=== PATIENT | female | born 1940 | race Asian ===

== ENCOUNTER 2017-02-03 16:16 | Inpatient (IN) | payer OTHER, MEDICARE ==
[~2017-02-03] VITALS: Ht 149.9 cm; Wt 39.6 kg
[~2017-02-03 16:16] MED LIST: AMLO5TAB22 PO; RALO1TAB13 PO; TRAM-388 PO; ZOCO40TA PO
[2017-02-03 16:20] VITALS: BP 140/60; PULSE 104; RESP 16; TEMP 98.4; O2SAT 98
--- NOTE | 2017-02-03 17:27 | PD ---
HPI Chief Complaint: Dizziness Time Seen by Provider: 17:15 Travel History International Travel<30 days: No Contact w/Intl Traveler<30days: No Traveled to known affect area: No History of Present Illness HPI This is a 77-year-old female with history of vertigo on meclizine treatment for years, hypertension, osteoporosis. She presents with her sister for evaluation. For the past few weeks the patient has been complaining of worsening dyspnea with exertion, dizziness, lightheadedness, headaches. Symptoms have persisted which prompted evaluation. She reports that she has dyspnea even when walking across the room. She has no history of congestive heart failure or other cardiac illness. She denies chest pain, cough or congestion, nausea or vomiting, abdominal pain, dysuria, flank pain, fevers or chills. She has reported that she's had a decreased appetite and has been feeling generalized weakness. Her primary care physician is Dr. Johnston. She has no other complaints at this time. PFSH Past Medical History High Cholesterol: Yes Cerebrovascular Accident: No Diabetes: No Hypertension: Yes Musculoskeletal: Yes (OSTEOPORISIS) Myocardial Infarction: No Past Surgical History Abdominal Surgery: Yes (TUMOR REMOVED FROM STOMACH) Gynecologic Surgery: Yes (RIGHT BREAST CYST REMOVED) Social History Alcohol Use: No Tobacco Use: No Substance Use: No Allergies-Medications (Allergen,Severity, Reaction): Coded Allergies: penicillin G (Unverified Allergy, Intermediate, 12/12/16) Reported Meds & Prescriptions Reported Meds & Active Scripts Active Reported Metoprolol Tartrate 50 Mg Tab 50 Mg PO BID Raloxifene (Raloxifene HCl) 60 Mg Tab 60 Mg PO DAILY Amlodipine (Amlodipine Besylate) 5 Mg Tab 5 Mg PO DAILY Meclizine (Meclizine HCl) 12.5 Mg Tab 12.5 Mg PO TID PRN Review of Systems Except as stated in HPI: all other systems reviewed are Neg Physical Exam Narrative GENERAL: [Pleasant elderly female who is in no acute distress sitting upright in hospital bed. Her vital signs have been reviewed. SKIN: Warm and dry. HEAD: Atraumatic. Normocephalic. EYES: Pupils equal and round. No scleral icterus. No injection or drainage. ENT: No nasal bleeding or discharge. Mucous membranes pink and moist. NECK: Trachea midline. No JVD. CARDIOVASCULAR: Regular rate and rhythm. No murmur appreciated. RESPIRATORY: No accessory muscle use. Clear to auscultation. Breath sounds equal bilaterally. No crackles no wheezing no rhonchi GASTROINTESTINAL: Abdomen soft, non-tender, nondistended. Hepatic and splenic margins not palpable. MUSCULOSKELETAL: No obvious deformities. No clubbing. No cyanosis. No edema. NEUROLOGICAL: Awake and alert. No obvious cranial nerve deficits. Motor grossly within normal limits. Normal speech. PSYCHIATRIC: Appropriate mood and affect; insight and judgment normal. Data Data Last Documented VS Vital Signs Date Time Temp Pulse Resp B/P (MAP) Pulse Ox O2 Delivery O2 Flow Rate FiO2 02/03/17 18:55 96 18 112/78 (89) 96 Room Air 02/03/17 16:20 98.4 Orders Orders Complete Blood Count With Diff (02/03/17:24) Comprehensive Metabolic Panel (02/03/17:24) B-Type Natriuretic Peptide (02/03/17 17:24) Magnesium (Mg) (02/03/17 17:24) Ckmb (Isoenzyme) Profile (02/03/17:24) Troponin I (02/03/17:24) Iv Access Insert/Monitor (02/03/17 17:24) Electrocardiogram (02/03/17:24) Ecg Monitoring (02/03/17:24) Oximetry (02/03/17:24) Chest, Single Ap (02/03/17 17:24) Ct Brain W/O Iv Contrast(Rout) (02/03/17 17:24) Ondansetron Inj (Zofran Inj) (02/03/17 17:30) Orthostatic Vital Signs (02/03/17 17:24) Meclizine (Antivert) (02/03/17 17:30) Urinalysis - C+S If Indicated (02/03/17 17:27) Urine Culture (02/03/17 17:50) Type And Screen (02/03/17 18:31) Red Blood Cells (Rbc) (02/03/17 18:31) Blood Product Administration (02/03/17 18:31) Act Partial Throm Time (Ptt) (02/03/17 18:31) Prothrombin Time / Inr (Pt) (02/03/17 18:31) Platelet Pheresis (02/03/17 18:39) Ceftriaxone Inj (Rocephin Inj) (02/03/17 18:45) Labs Laboratory Tests Test 02/03/17 17:50 02/03/17 17:53 02/03/17 18:30 Urine Color YELLOW Urine Turbidity HAZY Urine pH 5.5 Urine Specific [place] 1.024 Urine Protein 30 mg/dL Urine Glucose (UA) NEG mg/dL Urine Ketones TRACE mg/dL Urine Occult Blood TRACE Urine Nitrite NEG Urine Bilirubin NEG Urine Urobilinogen 2.0 MG/DL Urine Leukocyte Esterase LARGE Urine RBC 2 /hpf Urine WBC 40 /hpf Urine Squamous Epithelial Cells 2 /hpf Urine Hyaline Casts 3 /lpf Urine Mucus MOD /lpf Microscopic Urinalysis Comment CULTURE INDICATED White Blood Count 4.1 TH/MM3 Red Blood Count 1.29 MIL/MM3 Hemoglobin 4.4 GM/DL Hematocrit 12.7 % Mean Corpuscular Volume 98.4 FL Mean Corpuscular Hemoglobin 34.1 PG Mean Corpuscular Hemoglobin Concent 34.7 % Red Cell Distribution Width 12.9 % Platelet Count 18 TH/MM3 Mean Platelet Volume 9.3 FL Neutrophils (%) (Auto) 71.1 % Lymphocytes (%) (Auto) 14.5 % Monocytes (%) (Auto) 8.4 % Eosinophils (%) (Auto) 5.3 % Basophils (%) (Auto) 0.7 % Neutrophils # (Auto) 2.9 TH/MM3 Lymphocytes # (Auto) 0.6 TH/MM3 Monocytes # (Auto) 0.3 TH/MM3 Eosinophils # (Auto) 0.2 TH/MM3 Basophils # (Auto) 0.0 TH/MM3 CBC Comment AUTO DIFF Differential Comment AUTO DIFF CONFIRMED Platelet Estimate LOW Platelet Morphology Comment NORMAL Ovalocytes 1+ Blood Urea Nitrogen 36 MG/DL Creatinine 1.39 MG/DL Random Glucose 128 MG/DL Total Protein 7.5 GM/DL Albumin 4.0 GM/DL Calcium Level 8.5 MG/DL Magnesium Level 2.3 MG/DL Alkaline Phosphatase 47 U/L Aspartate Amino Transf (AST/SGOT) 12 U/L Alanine Aminotransferase (ALT/SGPT) 14 U/L Total Bilirubin 0.5 MG/DL Sodium Level 141 MEQ/L Potassium Level 4.1 MEQ/L Chloride Level 110 MEQ/L Carbon Dioxide Level 20.9 MEQ/L Anion Gap 10 MEQ/L Estimat Glomerular Filtration Rate 37 ML/MIN Total Creatine Kinase 60 U/L Troponin I LESS THAN 0.02 NG/ML Prothrombin Time 12.6 SEC Prothromb Time International Ratio 1.1 RATIO Activated Partial Thromboplast Time 22.[address] [facility] Medical Decision Making Medical Screen Exam Complete: Yes Emergency Medical Condition: Yes Medical Record Reviewed: Yes Differential Diagnosis Vertigo, electrolyte abnormality, dehydration, orthostatic hypotension, new onset CHF, arrhythmia, pneumonia, pneumothorax Narrative Course The patient will be placed on ECG monitoring and pulse oximetry. Twelve-lead EKG will be obtained. Plan is for basic lab work, chest x-ray. She'll be given meclizine, Zofran. Lab work is been reviewed. Hemoglobin is 4.4, platelet count is 18, she denies any hematemesis, hematochezia, melena. Hemoccult performed is negative. She does report a weight loss of uncertain amount over the past few months, at least several pounds. Urinalysis reveals 40 WBC count, culture pending, Rocephin has been initiated. The patient has been given 2 units of packed red blood cells and 2 units of platelets. She will be admitted for further evaluation and treatment. Procedures EKG Prior to Arrival: Yes Diagnosis Primary Impression: Anemia Qualified Codes: D64.9 - Anemia, unspecified Additional Impressions: Thrombocytopenia Pyuria Admitting Information Admitting Physician Requests: Admit Brady Khan Feb 03, 2017 17:27
[2017-02-03] MEDS ORDERED: MECLIZINE HCL 25 MG TAB PO ONE (17:30)
[2017-02-03] MEDS ORDERED: ONDANSETRON HCL 4 MG/2 ML VIAL IVP ONE (17:30)
[2017-02-03 17:36] VITALS: O2SAT 97
[2017-02-03] MEDS ORDERED: RALO1TAB PO (17:40)
[2017-02-03] MEDS ORDERED: METO50TA PO (17:40)
[2017-02-03] MEDS ORDERED: MECL12.574 PO (17:40)
[2017-02-03] MEDS ORDERED: AMLO5TAB2 PO (17:40)
--- NOTE | 2017-02-03 17:43 | RADRPT ---
EXAM DATE/TIME: 02/03/2017 17:28 [facility] COMPARISON: No previous studies available for comparison. INDICATIONS : Short of breath. MEDICAL HISTORY : None. SURGICAL HISTORY : None. ENCOUNTER: Initial ACUITY: 1 day PAIN SCORE: 6/10 LOCATION: Bilateral chest FINDINGS: Cardiomegaly. Aortic calcification. Clear lungs. Degenerative changes of the spine. Degenerative henry ges of both shoulders. CONCLUSION: No acute disease. Crispin Williamson MD on February 03, 2017 at 17:41 Board Certified Radiologist. This report was verified electronically.
[2017-02-03 17:50] VITALS: BP_SYST 123; BP_SYST 126; BP_SYST 127; BP_DIAS 58; BP_DIAS 59; BP_DIAS 60; RESP 18
[2017-02-03 18:21] LABS: BLOOD, URINE TRACE (NEG); COMMENT (UR) CULTURE INDICATED; CULTURE IF INDICATED CULTURE INDICATED; GLUCOSE,URINE NEG (NEG); HYALINE CAST, URINE 3 /lpf (RARE); KETONE, URINE TRACE mg/dL (NEG); MUCUS URINE MOD /lpf (OCC); NITRITE,URINE NEG (NEG); PH, URINE 5.5 (5.0-8.5); SQUAMOUS EPITHELIAL CELL URINE 2 /hpf (0-5); URINE COLOR YELLOW (YELLW/STRAW)
[2017-02-03 18:24] LABS: AUTOMATED NEUTROPHIL # 2.9 TH/MM3 (1.8-7.7); BASOPHIL % 0.7 % (0.0-2.0); EOSINOPHIL # 0.2 TH/MM3 (0-0.4); EOSINOPHIL % 5.3 % (0.0-4.0); LYMPH % 14.5 % (9.0-44.0); LYMPHOCYTE # 0.6 TH/MM3 (1.0-4.8); MEAN CELL VOLUME 98.4 FL (80.0-100.0); MEAN CORPUSCULAR HEMOGLOBIN 34.1 PG (27.0-34.0); MEAN CORPUSCULAR HGB CONC 34.7 % (32.0-36.0); MONO % 8.4 % (0.0-8.0); NEUT % 71.1 % (16.0-70.0); RED BLOOD COUNT 1.29 MIL/MM3 (4.00-5.30); RED CELL DISTRIBUTION WIDTH 12.9 % (11.6-17.2); WHITE BLOOD COUNT 4.1 TH/MM3 (4.0-11.0)
--- NOTE | 2017-02-03 18:29 | RADRPT ---
EXAM DATE/TIME: 02/03/2017 18:11 [facility] COMPARISON: CT BRAIN W/O CONTRAST, April 23, 2009, 16:42. INDICATIONS : Dizziness for two weeks. RADIATION DOSE: 25.36 CTDIvol (mGy) MEDICAL HISTORY : Hypertension. SURGICAL HISTORY : Hysterectomy. ENCOUNTER: Initial ACUITY: 1 day PAIN SCALE: 0/10 LOCATION: Bilateral head TECHNIQUE: Multiple contiguous axial images were obtained of the head. Using automated exposure control and adj ustment of the mA and/or kV according to patient size, radiation dose was kept as low as reasonably a chievable to obtain optimal diagnostic quality images. DICOM format image data is available electro nically for review and comparison. FINDINGS: There is mild diffuse volume loss again seen. No hemorrhage, infarct, or mass. Osseous structures are intact. CONCLUSION: No acute disease. Crispin Williamson MD on February 03, 2017 at 18:28 Board Certified Radiologist. This report was verified electronically.
[2017-02-03 18:32] LABS: HEMO FLAGS AUTO DIFF
[2017-02-03 18:33] LABS: HEMATOCRIT 12.7 % (35.0-46.0)
[2017-02-03 18:34] LABS: PLATELET COUNT 18 TH/MM3 (150-450)
[2017-02-03] MEDS ORDERED: cefTRIAXone INJ 1,000 MG in SODIUM CHLORIDE 0.9% INJ 100 ML IV ONE (18:45)
[2017-02-03 18:49] LABS: ALT (GPT) 14 U/L (10-53); ANION GAP 10 MEQ/L (5-15); AST (GOT) 12 U/L (15-37); BICARBONATE 20.9 MEQ/L (21.0-32.0); BLOOD UREA NITROGEN 36 MG/DL (7-18); CHLORIDE 110 MEQ/L (98-107); GLOMERULAR FILTRATION RATE 37 ML/MIN (>89); MAGNESIUM 2.3 MG/DL (1.5-2.5); POTASSIUM 4.1 MEQ/L (3.5-5.1); SODIUM (NA) 141 MEQ/L (136-145)
[2017-02-03 18:53] LABS: ALKALINE PHOSPHATASE 47 U/L (45-117); TOTAL BILIRUBIN ADULT 0.5 MG/DL (0.2-1.0)
[2017-02-03 18:54] LABS: CREATINE KINASE 60 U/L (26-192)
[2017-02-03 18:55] VITALS: BP 112/78; PULSE 96; RESP 18; O2SAT 96
[2017-02-03 19:03] LABS: APTT (PATIENT) 22.6 SEC (24.3-30.1); INTERNATIONAL NORMALIZED RATIO 1.1 RATIO; PROTHROMBIN TIME - PATIENT 12.6 SEC (9.8-11.6)
[2017-02-03 19:05] LABS: OVALOCYTES 1+ (NORMAL); PLATELET MORPHOLOGY NORMAL (NORMAL); SCAN/DIFF AUTO DIFF CONFIRMED
[2017-02-03 19:08] LABS: PLATELET ESTIMATE SMEAR LOW (NORMAL)
--- NOTE | 2017-02-03 19:28 | HHI.HP ---
[facility] Douglas Johnston MD Admission Diagnosis critical anemia, thrombocytopenia, pyuria Diagnoses: (1) Anemia Diagnosis: Principal (2) Thrombocytopenia Diagnosis: Principal (3) UTI (urinary tract infection) Diagnosis: Principal (4) RIGOBERTO (acute kidney injury) Diagnosis: Principal Travel History International Travel<30 Days: No Contact w/Intl Traveler <30 Da: No Traveled to Known Affected Are: No History of Present Illness This a 77-year-old female with a PMH of HTN and Osteoporosis who was brought to the ER by Sister secondary to progressive weakness, dizziness and c/o headache for approx 2-3 wks. Sister lives in [facility] she became concerned that pt was having ongoing weakness/dizziness and drove up from [place] to check on her. Upon arrival, pt was noted to be very weak and frail, "walking like she's drunk ". On arrival, BP 140/60, HR 104, O2 sat 98% on RA, Afebrile. Creatinine 1.39 , previously 1.00 on 04/23/09. Trop negative. U/a positive for UTI. WBC 4.1. Hemoglobin 4.4, previously 12.0 on 04/23/09. Platelets 18, previously 242 on 04/23/09. Per Sister pt follows w/ her PCP, Dr. Johnston, states pt was referred to [facility] as outpatient several months ago for "low platelets", however pt apparently never followed up. 2u pRBC and 2 Platelets ordered in ER, pending transfusion. Hemoccult (-). Review of Systems Except as stated in HPI: all other systems reviewed are Neg ROS: 14 point review of systems otherwise negative. Past Family Social History Past Medical History PMH: HTN and Osteoporosis Past Surgical History PAST SURGICAL HISTORY: Gastric Tumor, Right Breast Cystectomy Allergies: Coded Allergies: penicillin G (Unverified Allergy, Intermediate, 12/12/16) Family History PAST FAMILY HISTORY: Reviewed. No h/o DM or CAD Social History PAST SOCIAL HISTORY: Negative for alcohol, tobacco or drugs. Physical Exam Vital Signs Vital Signs Date Time Temp Pulse Resp B/P (MAP) Pulse Ox O2 Delivery O2 Flow Rate FiO2 02/03/17 18:55 96 18 112/78 (89) 96 Room Air 02/03/17 17:50 105 18 126/60 (82) 102 18 123/59 (80) 108 18 127/58 (81) 02/03/17 17:36 97 Room Air 02/03/17 17:36 102 20 Room Air 02/03/17 16:20 98.4 104 16 140/60 (86) 98 Physical Exam PE: GENERAL: Pleasant elderly Malaysian female in no acute distress. Sister at bedside HEENT: PERRLA, EOMI. No scleral icterus or conjunctival pallor. No lid lag or facial droop. CARDIOVASCULAR: Regular rate and rhythm. No obvious murmurs to auscultation. No chest tenderness to palpation. RESPIRATORY: No obvious rhonchi or wheezing. Clear to auscultation. Breath sounds equal bilaterally. GASTROINTESTINAL: Abdomen soft, non-tender, nondistended. BS normal. MUSCULOSKELETAL: Extremities without clubbing, cyanosis, or edema. No obvious deformities. NEUROLOGICAL: Awake, alert and oriented x4. No focal neurologic deficits. Moving both upper and lower extremities spontaneously. Laboratory Laboratory Tests Test 02/03/17 17:50 02/03/17 17:53 02/03/17 18:30 Urine Color YELLOW Urine Turbidity HAZY Urine pH 5.5 Urine Specific [place] 1.024 Urine Protein 30 Urine Glucose (UA) NEG Urine Ketones TRACE Urine Occult Blood TRACE Urine Nitrite NEG Urine Bilirubin NEG Urine Urobilinogen 2.0 Urine Leukocyte Esterase LARGE Urine RBC 2 Urine WBC 40 Urine Squamous Epithelial Cells 2 Urine Hyaline Casts 3 Urine Mucus MOD Microscopic Urinalysis Comment CULTURE INDICATED White Blood Count 4.1 Red Blood Count 1.29 Hemoglobin 4.4 Hematocrit 12.7 Mean Corpuscular Volume 98.4 Mean Corpuscular Hemoglobin 34.1 Mean Corpuscular Hemoglobin Concent 34.7 Red Cell Distribution Width 12.9 Platelet Count 18 Mean Platelet Volume 9.3 Neutrophils (%) (Auto) 71.1 Lymphocytes (%) (Auto) 14.5 Monocytes (%) (Auto) 8.4 Eosinophils (%) (Auto) 5.3 Basophils (%) (Auto) 0.7 Neutrophils # (Auto) 2.9 Lymphocytes # (Auto) 0.6 Monocytes # (Auto) 0.3 Eosinophils # (Auto) 0.2 Basophils # (Auto) 0.0 CBC Comment AUTO DIFF Differential Comment AUTO DIFF CONFIRMED Platelet Estimate LOW Platelet Morphology Comment NORMAL Ovalocytes 1+ Blood Urea Nitrogen 36 Creatinine 1.39 Random Glucose 128 Total Protein 7.5 Albumin 4.0 Calcium Level 8.5 Magnesium Level 2.3 Alkaline Phosphatase 47 Aspartate Amino Transf (AST/SGOT) 12 Alanine Aminotransferase (ALT/SGPT) 14 Total Bilirubin 0.5 Sodium Level 141 Potassium Level 4.1 Chloride Level 110 Carbon Dioxide Level 20.9 Anion Gap 10 Estimat Glomerular Filtration Rate 37 Total Creatine Kinase 60 Troponin I LESS THAN 0.02 Prothrombin Time 12.6 Prothromb Time International Ratio 1.1 Activated Partial Thromboplast Time 22.6 Date/Time Source Procedure Growth Status 02/03/17 17:50 Urine Clean Catch Urine Culture Pending Worksheet Result Diagram: 02/03/17 [id number] Sal VTE Risk Assessment Iliarini VTE Risk Assessment: No/Low Risk (score <= 1) VTE Pharm Contraindication: Thrombocytopenia(<50) Caprini Risk Assessment Model Point Value = 1 Point Value = 2 Point Value = 3 Point Value = 5 Age 41-60 Minor surgery BMI > 25 kg/m2 Swollen legs Varicose veins or History of unexplained or recurrent spontaneous Oral contraceptives or hormone replacement Sepsis (< 1 month) Serious lung disease, including pneumonia (< 1 month) Abnormal pulmonary function Acute myocardial infarction Congestive heart failure (< 1 month) History of inflammatory bowel disease Medical patient at bed rest Age 61-74 Arthroscopic surgery Major open surgery (> 45 min) Laparoscopic surgery (> 45 min) Malignancy Confined to bed (> 72 hours) Immobilizing plaster cast Central venous access Age >= 75 History of VTE Family history of VTE Factor V Leiden Prothrombin [id number] Lupus anticoagulant Anticardiolipin antibodies Elevated serum homocysteine Heparin-induced thrombocytopenia Other congenital or acquired thrombophilia Stroke (< 1 month) Elective arthroplasty Hip, pelvis, or leg fracture Acute spinal cord injury (< 1 month) Prophylaxis Regimen Total Risk Factor Score Risk Level Prophylaxis Regimen 0-1 Low Early ambulation 2 Moderate Order ONE of the following: *Sequential Compression Device (SCD) *Heparin 5000 units SQ BID 3-4 Higher Order ONE of the following medications: *Heparin 5000 units SQ TID *Enoxaparin/Lovenox 40 mg SQ daily (WT < 150 kg, CrCl > 30 mL/min) *Enoxaparin/Lovenox 30 mg SQ daily (WT < 150 kg, CrCl > 10-29 mL/min) *Enoxaparin/Lovenox 30 mg SQ BID (WT < 150 kg, CrCl > 30 mL/min) AND/OR *Sequential Compression Device (SCD) 5 or more Highest Order ONE of the following medications: *Heparin 5000 units SQ TID (Preferred with Epidurals) *Enoxaparin/Lovenox 40 mg SQ daily (WT < 150 kg, CrCl > 30 mL/min) *Enoxaparin/Lovenox 30 mg SQ daily (WT < 150 kg, CrCl > 10-29 mL/min) *Enoxaparin/Lovenox 30 mg SQ BID (WT < 150 kg, CrCl > 30 mL/min) AND *Sequential Compression Device (SCD) Assessment and Plan Problem List: (1) Anemia ICD Code: D64.9 - Anemia, unspecified Status: Acute (2) Thrombocytopenia ICD Code: D69.6 - Thrombocytopenia, unspecified Status: Acute (3) UTI (urinary tract infection) ICD Code: N39.0 - Urinary tract infection, site not specified (4) RIGOBERTO (acute kidney injury) ICD Code: N17.9 - Acute kidney failure, unspecified Assessment and Plan A/P: 1. Anemia: Critical Anemia. Symptomatic. Hgb 4.4, previously 12.0 on , Hemoccult (-). Check Ferritin, Iron/TIBC. 2u pRBC ordered in ER, pending transfusion, will recheck after transfusion completed, will likely require additional pRBC. Consult Hematology for further evaluation, likely BM biopsy. 2. Thrombocytopenia: Platelets 18, previously 242 on 04/23/09. Denies easy bleeding/ecchymosis. Per sister, pt referred to Hematology by PCP several months ago for same, however never followed up. Outpatient labs unavailable for comparison. 2 platelets ordered in ER, pending transfusion. Repeat labs post-transfusion. 3. RIGOBERTO: Creatinine 1.39, previously 1.00. IVF for hydration, repeat labs in am. 4. UTI: U/a w/ UTI. S/p Rocephin in ER, follow up cultures, IVF for hydration. 5. DVT Prophylaxis: Pharmacologic contraindication in light of profound anemia /thrombocytopenia 6. Social work for d/c planning as needed. 7. Case discussed w/ ER physician at length. Physician Certification 2 Midnight Certification Type: Admission for Inpatient Services Order for Inpatient Services The services are ordered in accordance with Medicare regulations or non- Medicare payer requirements, as applicable. In the case of services not specified as inpatient-only, they are appropriately provided as inpatient services in accordance with the 2-midnight benchmark. Estimated LOS (days): 2 days is the estimated time the patient will need to remain in the hospital, assuming treatment plan goals are met and no additional complications. Post-Hospital Plan: Not yet determined Problem Qualifiers (1) Anemia: Qualified Codes: D64.9 - Anemia, unspecified Madiha Kuo MD Feb 03, 2017 19:28
[2017-02-03] MEDS ORDERED: ACETAMINOPHEN/HYDROcodone 325 MG/5 MG TAB PO PRN (19:30)
[2017-02-03] MEDS ORDERED: ONDANSETRON HCL 4 MG/2 ML VIAL IVP PRN (19:30)
[2017-02-03] MEDS ORDERED: SODIUM CHLORIDE 0.9% FLUSH 10 ML FLUSH IV FLUSH PRN (19:30)
[2017-02-03] MEDS ORDERED: MORPHINE SULFATE 4 MG/ML INJ IV PUSH PRN (19:30)
[2017-02-03] MEDS ORDERED: MAGNESIUM HYDROXIDE SUSP 30 ML CUP PO PRN (19:30)
[2017-02-03] MEDS ORDERED: SENNOSIDES 8.6 MG TAB PO PRN (19:30)
[2017-02-03] MEDS ORDERED: BISACODYL 10 MG SUPP RECTAL PRN (19:30)
[2017-02-03] MEDS ORDERED: LACTULOSE SYRUP 20 GM/30 ML CUP PO PRN (19:30)
[2017-02-03] MEDS ORDERED: ACETAMINOPHEN 325 MG TAB PO PRN (19:30)
[2017-02-03] MEDS ORDERED: FUROSEMIDE 20 MG/2 ML VIAL IV PUSH PRN (19:30)
[2017-02-03] MEDS ORDERED: MECLIZINE HCL 25 MG TAB PO PRN (19:45)
[2017-02-03 20:00] VITALS: BP 129/70; PULSE 89; RESP 20; TEMP 99.1; O2SAT 98
[2017-02-03] MEDS ORDERED: SODIUM CHLOR 0.9% 1000 ML INJ 1,000 ML IV ONE (20:00)
[2017-02-03] MEDS ORDERED: PILL SPLITTER OTHER PRN (20:30)
[2017-02-03] MEDS: DOCUSATE SODIUM 50 MG/SENNA 8.6 MG TAB PO SCH (22:37)
[2017-02-03] MEDS: SODIUM CHLORIDE 0.9% FLUSH 10 ML FLUSH IV FLUSH SCH (22:38)
[2017-02-03 22:48] LABS: TRANSFERRIN IRON PROFILE 184 MG/DL (200-360)
[2017-02-03 22:50] LABS: FERRITIN 425 NG/ML (8-252)
[2017-02-03 23:00] VITALS: BP 124/56; PULSE 68; RESP 20; TEMP 98.4; O2SAT 96
[2017-02-04] VITALS (13 sets, daily range): BP systolic 108–145; BP diastolic 51–70; PULSE 64–92; RESP 16–20; TEMP 97.3–99.7; O2SAT 96–99
[2017-02-04] MEDS ORDERED: FUROSEMIDE 20 MG/2 ML VIAL ONE (02:33)
--- NOTE | 2017-02-04 05:57 | EKG ---
Date Performed: 02/03/2017 Time Performed: 17:46:23 PTAGE: 77 years EKG: SINUS TACHYCARDIA ST DEVIATION AND MODERATE T-WAVE ABNORMALITY, CONSIDER ANTEROLATERAL ISCH EMIA ST DEVIATION AND MODERATE T-WAVE ABNORMALITY, CONSIDER INFERIOR ISCHEMIA ABNORMAL ECG INTERPRETA TION BASED ON A DEFAULT AGE OF 40 YEARS PREVIOUS TRACING : 02/03/2017 17.28 DOCTOR: Hesham Alcantara Interpretating Date/Time 02/04/2017 05:54:40
[2017-02-04 08:37] LABS: AUTOMATED NEUTROPHIL # 3.4 TH/MM3 (1.8-7.7); BASOPHIL % 0.7 % (0.0-2.0); EOSINOPHIL # 0.3 TH/MM3 (0-0.4); EOSINOPHIL % 5.6 % (0.0-4.0); LYMPHOCYTE # 0.7 TH/MM3 (1.0-4.8); MEAN CELL VOLUME 90.2 FL (80.0-100.0); MEAN CORPUSCULAR HEMOGLOBIN 32.1 PG (27.0-34.0); MEAN CORPUSCULAR HGB CONC 35.6 % (32.0-36.0); MONO % 7.7 % (0.0-8.0); PLATELET COUNT 105 TH/MM3 (150-450); RED BLOOD COUNT 2.29 MIL/MM3 (4.00-5.30); RED CELL DISTRIBUTION WIDTH 15.6 % (11.6-17.2); WHITE BLOOD COUNT 4.7 TH/MM3 (4.0-11.0)
[2017-02-04] MEDS: CIPROFLOXACIN 400 MG PREMIX 200 ML IV SCH (08:41)
[2017-02-04 08:42] LABS: HEMO FLAGS DIFF FINAL
[2017-02-04 08:45] LABS: HEMATOCRIT 20.7 % (35.0-46.0)
[2017-02-04] MEDS: DOCUSATE SODIUM 50 MG/SENNA 8.6 MG TAB PO SCH ×2 (08:46→21:07)
[2017-02-04] MEDS: SODIUM CHLORIDE 0.9% FLUSH 10 ML FLUSH IV FLUSH SCH ×2 (08:47→21:02)
[2017-02-04 09:11] LABS: ALKALINE PHOSPHATASE 54 U/L (45-117); ALT (GPT) 16 U/L (10-53); ANION GAP 9 MEQ/L (5-15); AST (GOT) 20 U/L (15-37); BICARBONATE 25.3 MEQ/L (21.0-32.0); BLOOD UREA NITROGEN 27 MG/DL (7-18); CHLORIDE 105 MEQ/L (98-107); GLOMERULAR FILTRATION RATE 52 ML/MIN (>89); POTASSIUM 3.2 MEQ/L (3.5-5.1); SODIUM (NA) 139 MEQ/L (136-145); TOTAL BILIRUBIN ADULT 1.7 MG/DL (0.2-1.0)
--- NOTE | 2017-02-04 12:54 | MB ---
cc: CHRISTIAN JULIAN MD DATE OF : 1940 DATE OF CONSULTATION: 02/04/2017 REQUESTING PHYSICIAN: Hospitalist service REASON FOR CONSULTATION: Severe anemia and thrombocytopenia, findings concerning for a primary bone marrow disorder. CHIEF COMPLAINT The patient reports having felt dizzy and weak for the past few weeks. HISTORY OF PRESENT ILLNESS Ms. Palmer is 77-year-old female of [place] descent. She was brought into [facility] by her sister. The patient's sister became concerned regarding the patient's overall fatigue and weakness, and what appears to be failure to thrive over the past few weeks and brought her in to be evaluated. Ms. Palmer reports being found to have anemia and low platelet count some months ago and was advised a hematology evaluation in the outpatient setting but she never complied and has yet to be seen in the outpatient setting. Upon presentation the patient was noted to be close to emaciated. She was quite frail appearing. Her hemoglobin was less than 5 gm/dl. The platelet count was approximately 18,000 on automated differential. She has been transfused two units of packed red blood cells and two units platelets overnight. Hematology service has been asked to see her this morning. PAST MEDICAL HISTORY The patient reports no major oncologic or hematologic diagnoses. She tells me she has history of osteoporosis and high blood pressure. 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 She is status post cholecystectomy. ALLERGIES Penicillin which causes a rash. FAMILY HISTORY She denies any known oncologic diagnoses. SOCIAL HISTORY She is , she lives at home alone and [place]. She has no children of her own. She denies being a smoker and denies alcohol. She moved to the [facility] from the [facility] in 1974. CURRENT INPATIENT MEDICATIONS 1. Ciprofloxacin 400 milligrams q24 hours. 2. Hydrocodone / acetaminophen 5/225 as needed for moderate pain. 3. Dulcolax suppositories 10 milligrams per rectum daily. 4. Lactulose 30 mL p.o. daily 5. Magnesium hydroxide 30 mL p.o. q12 hours. 6. Meclizine 12.5 milligrams t.i.d. as needed for vertigo. 7. Morphine 2 milligrams IV q3 hours as needed for pain. 8. Zofran 4 milligrams IV q6 hours as needed for nausea and vomiting. 9. Senokot 17.2 milligrams q12 as needed for constipation. REVIEW OF SYSTEMS: Constitutional: The patient reports feeling weak, fatigued. She tells me her appetite is poor. She denies fevers, chills. HEENT: Denies headaches, blurry vision, difficulty swallowing or soreness in the throat. Respiratory: Reports difficulty breathing with minimal exertion, denies cough or hemoptysis. Denies chest pain or pleuritic chest pain. Cardiovascular: Denies palpitations, angina-like chest pain, PND, orthopnea or lower extremity edema. GI: Reports poor appetite, denies abdominal pain, denies nausea, vomiting, diarrhea, hematochezia, melena, abdominal distension or yellow jaundice. : No complaints. Musculoskeletal: Reports osteoarthritis in the knees, hips and lower back. PHYSICAL EXAMINATION Vital signs: Temperature 99.5 degrees Fahrenheit, heart rate 77 beats a minute, respiratory rate 20, blood pressure 126/62, O2 sats 99% on room air. General physical appearance: Ms. Palmer is an elderly female, she is a very slight frame, she is sitting up in bed. She appears to be in no acute distress. She does appear to be somewhat anxious. She tells me she thinks somebody may have taken her purse. HEENT: Head atraumatic, normocephalic, conjunctive are pale sclerae anicteric, EOMI, PERRLA, oral exam no pharyngeal erythema. Neck exam: No palpable cervical or supraclavicular adenopathy. Respiratory exam: Good air movement bilaterally. Cardiovascular: Regular rate and rhythm, S1-S2. No obvious murmurs, rubs or gallops. Abdominal exam: Thin belly, soft and nontender, nondistended no palpable organ enlargement, specifically no splenomegaly. Lower Extremities: No pretibial edema or calf tenderness. MEAT CLERK: No focal sensory or motor deficits. She is alert and oriented x3. Musculoskeletal: Generally decreased muscle mass, tone, strength. LABORATORY FINDINGS CBC dated 02/03/2017: WBC count 4.1, hemoglobin 4.4 gm/dl, hematocrit 12.7%, MCV is 98.4, platelet count is 18, absolute neutrophil count is 2.9, absolute lymphocyte count 0.6. Review of peripheral smear performed by myself personally: WBCs: Toxic granulation identified in the neutrophils. There is a definite left shift. The lymphocytes appear to be atypical with cleaved nuclei, there appears to be some granulation of the cytoplasm as well of the lymphocytes. Platelets are definitely decrease in number and I would estimate the actual platelet count to be close to 20,000. No platelet clumping is identified. RBCs: Appear to be normocytic, no clumping, no teardrops. The RBCs are definitely decreased in number. Chemistries: Sodium 139, potassium 3.2, chloride 105, bicarb 25.3, BUN is 27, creatinine 1.03, estimated GFR is 52, random glucose 99, calcium 8.6, serum iron level: 140, TIBC 250, percent iron saturation is 543, ferritin level elevated at 425. Liver functions: Total bilirubin 0.5, AST 12, ALT 14, alkaline phosphatase 47, albumin is 4. ASSESSMENT Ms. Palmer is a 77-year-old female who comes into the hospital with symptoms of fatigue, weakness, failure to thrive and loss of appetite. She was noted to have anemia with hemoglobin of 4.4 gm/dl on presentation as well as thrombocytopenia with platelet count of 18,000. The peripheral smear findings were somewhat nonspecific. There was a definite decrease in red cells, there were some abnormalities (subtle abnormalities) of the circulating lymphocytes which appear to have cleaved nuclei and somewhat granulated cytoplasm but other than that, there appeared to be no dysplastic or dysmorphic findings. There is, however, a concern of primary underlying bone marrow disorder. I did talk to the patient about the necessity of having a bone marrow biopsy obtained for further workup and analysis. Her serum iron studies are without evidence of iron deficiency. I will check a stool for occult blood to rule out ongoing GI losses. Vitamin B12 and folic acid levels will also be assessed. Serum protein electrophoresis will be ordered. Further recommendations as additional results come in. MD DAYANNA Holm/ZAHIDA /12:08 PM /12:35 PM
[2017-02-04 13:13] LABS: AUTOMATED NEUTROPHIL # 3.1 TH/MM3 (1.8-7.7); BASOPHIL % 0.8 % (0.0-2.0); EOSINOPHIL # 0.3 TH/MM3 (0-0.4); EOSINOPHIL % 6.9 % (0.0-4.0); LYMPH % 15.1 % (9.0-44.0); LYMPHOCYTE # 0.7 TH/MM3 (1.0-4.8); MEAN CELL VOLUME 89.8 FL (80.0-100.0); MEAN CORPUSCULAR HEMOGLOBIN 31.4 PG (27.0-34.0); MEAN CORPUSCULAR HGB CONC 34.9 % (32.0-36.0); MONO % 7.8 % (0.0-8.0); NEUT % 69.4 % (16.0-70.0); PLATELET COUNT 102 TH/MM3 (150-450); RED BLOOD COUNT 2.32 MIL/MM3 (4.00-5.30); RED CELL DISTRIBUTION WIDTH 15.9 % (11.6-17.2); WHITE BLOOD COUNT 4.4 TH/MM3 (4.0-11.0)
[2017-02-04 13:19] LABS: HEMO FLAGS DIFF FINAL
[2017-02-04 13:20] LABS: INTERNATIONAL NORMALIZED RATIO 1.1 RATIO; PROTHROMBIN TIME - PATIENT 12.5 SEC (9.8-11.6)
[2017-02-04 13:21] LABS: HEMATOCRIT 20.8 % (35.0-46.0)
[2017-02-04 15:03] LABS: TOTAL PROTEIN SPE 6.4 GM/DL (6.0-7.6)
--- NOTE | 2017-02-04 15:27 | HHI.PR ---
Subjective Remarks resting comfortably in bed no chest pain or short of breath I discussed with her the anemia and the plan for the bone marrow biopsy, she already met with Dr. Moore the oncologist Objective Vitals Vital Signs Date Time Temp Pulse Resp B/P (MAP) Pulse Ox O2 Delivery O2 Flow Rate FiO2 02/04/17 12:00 97.3 73 20 122/56 (78) 99 02/04/17 08:00 99.1 76 20 126/58 (80) 97 02/04/17 04:00 99.5 77 20 126/62 (83) 99 02/04/17 03:00 98.4 84 18 108/51 (70) 96 02/04/17 01:00 99.3 92 20 108/51 99 02/04/17 00:00 98.3 64 20 112/58 96 02/04/17 00:00 99.7 89 20 109/52 (71) 99 02/03/17 23:00 98.4 68 20 124/56 96 02/03/17 20:00 99.1 89 20 129/70 (89) 98 02/03/17 18:55 96 18 112/78 (89) 96 Room Air 02/03/17 17:50 105 18 126/60 (82) 102 18 123/59 (80) 108 18 127/58 (81) 02/03/17 17:36 97 Room Air 02/03/17 17:36 102 20 Room Air 02/03/17 16:20 98.4 104 16 140/60 (86) 98 I/O 02/03/17 02/03/17 02/03/17 02/04/17 02/04/17 02/04/17 07:00 15:00 23:00 07:00 15:00 23:00 Intake Total 1100 ml Balance 1100 ml Intake Packed Cells 600 ml Platelets 290 ml Blood Product IV Normal Saline Flush 210 ml # Voids 1 2 Result Diagram: 02/04/17 1250 02/04/17 0734 Objective Remarks GENERAL: This is a thin fragile well-developed patient, in no apparent distress. SKIN: No rashes, warm and dry HEAD: Atraumatic. Normocephalic. EYES: Pupils equal round and reactive. Extraocular motions intact. No scleral icterus. ENT: Nose without bleeding, or drainage, Airway patent. NECK: Trachea midline. Supple CARDIOVASCULAR: Regular rate and rhythm without murmurs, gallops, or rubs. RESPIRATORY: Fair air entry bilaterally. No wheezes, rales, or rhonchi. GASTROINTESTINAL: Abdomen soft, non-tender, nondistended. Positive bowel sounds MUSCULOSKELETAL: Extremities without clubbing, cyanosis, or edema. Pedal pulses appreciated NEUROLOGICAL: Awake and alert. Moves all extremity. Normal speech.no focal neurological deficit A/P Problem List: (1) Anemia ICD Code: D64.9 - Anemia, unspecified Status: Acute (2) Thrombocytopenia ICD Code: D69.6 - Thrombocytopenia, unspecified Status: Acute (3) UTI (urinary tract infection) ICD Code: N39.0 - Urinary tract infection, site not specified (4) RIGOBERTO (acute kidney injury) ICD Code: N17.9 - Acute kidney failure, unspecified Assessment and Plan Acute anemia possible GI loss symptomatic: Hemoglobin 4.4, today improved to 7.3 status post 2 units RBC, Hemoccult stool negative, will give another 1 unit of PRBC, appreciated hematology oncology consultation, will need bone marrow biopsy Thrombocytopenia: Platelet 18,000, no signs of bleeding or ecchymosis, followed by real estate asset manager RIGOBERTO: Follow creatinine, iv fluid hydration, BMP, avoid nephrotoxin UTI: UA positive for infection started on Rocephin, follow urine culture, iv hydration DVT prophylaxis, no chemical prophylaxis due to anemia and thrombocytopenia Problem Qualifiers (1) Anemia: Qualified Codes: D64.9 - Anemia, unspecified Aida Neal MD Feb 04, 2017 15:27
[2017-02-05] VITALS (8 sets, daily range): BP systolic 111–159; BP diastolic 53–85; PULSE 64–82; RESP 16–20; TEMP 97.1–98.5; O2SAT 91–99
[2017-02-05] MEDS: CIPROFLOXACIN 400 MG PREMIX 200 ML IV SCH (08:30)
[2017-02-05] MEDS: DOCUSATE SODIUM 50 MG/SENNA 8.6 MG TAB PO SCH ×2 (08:30→21:19)
[2017-02-05] MEDS: SODIUM CHLORIDE 0.9% FLUSH 10 ML FLUSH IV FLUSH SCH ×2 (08:30→21:20)
[2017-02-05 10:00] LABS: AUTOMATED NEUTROPHIL # 2.2 TH/MM3 (1.8-7.7); BASOPHIL % 0.6 % (0.0-2.0); EOSINOPHIL # 0.3 TH/MM3 (0-0.4); EOSINOPHIL % 8.3 % (0.0-4.0); HEMATOCRIT 26.2 % (35.0-46.0); LYMPH % 21.7 % (9.0-44.0); LYMPHOCYTE # 0.8 TH/MM3 (1.0-4.8); MEAN CELL VOLUME 88.9 FL (80.0-100.0); MEAN CORPUSCULAR HEMOGLOBIN 31.4 PG (27.0-34.0); MEAN CORPUSCULAR HGB CONC 35.3 % (32.0-36.0); MONO % 7.1 % (0.0-8.0); NEUT % 62.3 % (16.0-70.0); PLATELET COUNT 65 TH/MM3 (150-450); RED BLOOD COUNT 2.95 MIL/MM3 (4.00-5.30); RED CELL DISTRIBUTION WIDTH 15.9 % (11.6-17.2); WHITE BLOOD COUNT 3.5 TH/MM3 (4.0-11.0)
[2017-02-05 10:09] LABS: HEMO FLAGS AUTO DIFF
--- NOTE | 2017-02-05 10:11 | PD.ONC.PN ---
Subjective Subjective Remarks Afebrile overnight. Patient resting in bed in nad. Waiting to go downstairs for bone marrow biopsy. Objective Data Date Time Temp Pulse Resp B/P (MAP) Pulse Ox O2 Delivery O2 Flow Rate FiO2 02/05/17 09:01 98.5 71 18 148/67 (94) 97 02/05/17 04:00 97.1 64 20 120/58 (78) 97 02/05/17 00:00 98.3 66 18 144/63 (90) 96 02/04/17 20:15 98.3 70 18 138/70 99 02/04/17 20:00 98.1 65 18 141/63 (89) 99 02/04/17 19:14 98.5 72 16 113/54 02/04/17 18:21 98.4 69 16 115/ 98 02/04/17 17:51 98.4 75 17 112/53 96 02/04/17 17:15 98.6 77 16 111/57 99 02/04/17 16:00 97.7 83 20 145/65 (91) 98 02/04/17 12:00 97.3 73 20 122/56 (78) 99 Result Diagram: 02/04/17 1250 02/04/17 0734 Laboratory Results Laboratory Tests Test 02/04/17 12:50 02/04/17 13:26 02/05/17 09:20 White Blood Count 4.4 TH/MM3 Red Blood Count 2.32 MIL/MM3 Hemoglobin 7.3 GM/DL Hematocrit 20.8 % Mean Corpuscular Volume 89.8 FL Mean Corpuscular Hemoglobin 31.4 PG Mean Corpuscular Hemoglobin Concent 34.9 % Red Cell Distribution Width 15.9 % Platelet Count 102 TH/MM3 Mean Platelet Volume 7.4 FL Neutrophils (%) (Auto) 69.4 % Lymphocytes (%) (Auto) 15.1 % Monocytes (%) (Auto) 7.8 % Eosinophils (%) (Auto) 6.9 % Basophils (%) (Auto) 0.8 % Neutrophils # (Auto) 3.1 TH/MM3 Lymphocytes # (Auto) 0.7 TH/MM3 Monocytes # (Auto) 0.3 TH/MM3 Eosinophils # (Auto) 0.3 TH/MM3 Basophils # (Auto) 0.0 TH/MM3 CBC Comment DIFF FINAL Differential Comment Prothrombin Time 12.5 SEC Prothromb Time International Ratio 1.1 RATIO Activated Partial Thromboplast Time 26.0 SEC Total Protein 6.4 GM/DL Vitamin B12 Level 293 PG/ML Folate 11.7 NG/ML Culture Results Microbiology Date/Time Source Procedure Growth Status 02/03/17 17:50 Urine Clean Catch Urine Culture - Preliminary <10,000 CFU/ML MIXED STEFANIE... Resulted Administered Medications Medications (Trade) Dose Ordered Sig/Edwina Route PRN Reason Start Time Stop Time Status Last Admin Dose Admin Sodium Chloride (NS Flush) 2 ml BID IV FLUSH 02/03/17 21:00 02/05/17 08:30 Senna/Docusate Sodium (Nitza-Colace) 1 tab BID PO 02/03/17 21:00 02/05/17 08:30 Magnesium Hydroxide (Milk Of Magnhui Liq) 30 ml Q12H PRN PO MILD - MODERATE CONSTIPATION 02/03/17 19:30 02/04/17 21:08 Ciprofloxacin/ Dextrose 200 ml @ 200 mls/hr Q24H IV 02/04/17 09:00 02/05/17 08:30 Objective Remarks GENERAL: Elderly female supine in bed in nad. SKIN: Warm and dry. HEAD: Normocephalic. EYES: No injection or drainage. NECK: Supple, trachea midline. CARDIOVASCULAR: Regular rate and rhythm RESPIRATORY: Breath sounds equal bilaterally. No accessory muscle use. GASTROINTESTINAL: Abdomen soft, non-tender, nondistended. EXTREMITIES: No cyanosis NEUROLOGICAL: No obvious focal deficit. Awake, alert, and oriented x3. Assessment/Plan Problem List: (1) Bicytopenia ICD Codes: D75.89 - Other specified diseases of blood and blood-forming organs Plan: --+anemia and thrombocytopenia --nonspecific peripheral smear findings. --no dysplastic or dysmorphic findings. --iron studies show no iron deficiency --serum protein electrophoresis pending Assessment 77y/o female with severe anemia and thrombocytopenia, findings concerning for a primary bone marrow disorder. Plan 1. bone marrow biopsy today 2. fs faxed to new patient referrals for follow up with Dr. Moore in one week. 3. monitor CBC 4. I discussed bone marrow biopsy procedure in detail with patient as well as the patient's sister JAY, via telephone at the patient's request. Jenn Ruiz Feb 05, 2017 10:11
[2017-02-05] MEDS ORDERED: LIDOCAINE HCL 1% 20 ML VIAL ONE (11:10)
[2017-02-05 11:28] LABS: SCAN/DIFF AUTO DIFF CONFIRMED
[2017-02-05] MEDS ORDERED: MIDAZOLAM HCL 2 MG/2 ML VIAL ONE (11:54)
--- NOTE | 2017-02-05 12:06 | PD.RAD ---
Post CT Procedure Prog Note Pre Procedure Diagnosis: (1) Thrombocytopenia Post Procedure Diagnosis: (1) Thrombocytopenia Procedure Date: Feb 05, 2017 Supervising Radiologist: Junior Prescott Proceduralist/Assist: roberto blunt Estimated blood loss: none Anesthesia: Conscious Sedation Plan of Activity Patient to Unit: ROPU Patient Condition: Good See PACS Report for procedural detail/treatment Junior Prescott MD Feb 05, 2017 12:06
[2017-02-05 12:56] LABS: BONE MARROW PROCESSING COMPLETE; IRON STAIN DONE; JENNER GIEMSA STAIN DONE
[2017-02-05] MEDS ORDERED: CIPR-9 PO (13:18)
--- NOTE | 2017-02-05 13:37 | HHI.FF ---
Face to Face Verification Diagnosis: (1) Anemia (2) Thrombocytopenia (3) UTI (urinary tract infection) (4) RIGOBERTO (acute kidney injury) Physical Therapy Order: Evaluate and Treat Occupational Therapy Order: Evaluate and Treat Home Health Nursing Order: Medical education Nursing assessment with vital signs I have seen patient Lisa Palmer on 02/05/17. My clinical findings support the need for the requested home health care services because: Deconditioned w/ increased weakness Limited ability to care for self I certify that my clinical findings support that this patient is homebound because: Unsteady gait/balance Unsafe to leave home unassisted Aida Neal MD Feb 05, 2017 13:37
--- NOTE | 2017-02-05 16:01 | RADRPT ---
EXAM DATE/TIME: 02/05/2017 11:51 [place] COMPARISON: No previous studies available for comparison. INDICATIONS : Thrombocytopenia. SEDATION TIME: 30 minutes BIOPSY SITE: Right iliac MEDICATION(S): 1.) 1 mg midazolam (Versed) IV 2.) 50 mcg fentanyl (Sublimaze) IV DEVICE(S): 1.) 11 gauge Bone marrow biopsy needle MEDICAL HISTORY : Osteoporosis. Hypertension. SURGICAL HISTORY : tumor removed from stomach. ENCOUNTER: Initial ACUITY: 1 day PAIN SCORE: 0/10 LOCATION: Right iliac A total of one core specimen(s) were obtained and sent to the laboratory for pathologic evaluation. PROCEDURE: 1. CT guided bone marrow biopsy. 2. Conscious sedation with continuous EKG and oximetry monitoring. 3. EKG and oximetry remained stable throughout the procedure. Prior to the procedure informed consent was obtained. Any appropriate prior imaging studies were rev iewed. Using automated exposure control and adjustment of the mA and/or kV according to patient size , radiation dose was kept as low as reasonably achievable to obtain optimal diagnostic quality images . DICOM format image data is available electronically for review and comparison. The site was prepped in a sterile fashion. Full sterile technique was used, including cap, mask, kristal rile gloves and gown and a large sterile sheet. Hand hygiene and 2% chlorhexidine and/or betadine/al cohol prep was utilized per protocol for cutaneous antisepsis. The skin and subcutaneous tissues wer e infiltrated with local anesthetic solution. With CT guidance the previously identified target was localized. Biopsy was performed using the presc ribed needle as above. Following biopsy marrow aspiration was performed with repeat puncture. Adequa te hemostasis was obtained with compression at the puncture site. Follow-up CT scan reveals no hemorrhage. Conscious sedation was performed with the prescribed dosages and duration as above in the presence of an independent trained radiology nurse to assist in the monitoring of the patient. EKG and oximetry remained stable throughout the procedure. The patient tolerated the procedure well and there were no complications. The patient was sent to Radiology Outpatient Unit in stable condition. CONCLUSION: 1. Uncomplicated CT guided bone marrow aspirate. 2. Uncomplicated CT guided bone marrow biopsy. Junior Prescott MD on February 05, 2017 at 15:59 Board Certified Radiologist. This report was verified electronically.
--- NOTE | 2017-02-05 17:11 | HHI.PR ---
Subjective Remarks Patient resting in bed, family at bedside I discussed with her sister who lives in [place] and came chest to take care of her sister's issues Patient looks fragile and fatigue I will get PT assessment I discussed with case maker for rehabilitation placement needed Objective Vitals Vital Signs Date Time Temp Pulse Resp B/P (MAP) Pulse Ox O2 Delivery O2 Flow Rate FiO2 02/05/17 14:41 98.2 65 16 136/65 (88) 98 02/05/17 12:52 70 17 155/79 (104) 97 02/05/17 12:22 98.2 78 16 159/85 (109) 91 02/05/17 09:01 98.5 71 18 148/67 (94) 97 02/05/17 04:00 97.1 64 20 120/58 (78) 97 02/05/17 00:00 98.3 66 18 144/63 (90) 96 02/04/17 20:15 98.3 70 18 138/70 99 02/04/17 20:00 98.1 65 18 141/63 (89) 99 02/04/17 19:14 98.5 72 16 113/54 02/04/17 18:21 98.4 69 16 115/ 98 02/04/17 17:51 98.4 75 17 112/53 96 02/04/17 17:15 98.6 77 16 111/57 99 I/O 02/04/17 02/04/17 02/04/17 02/05/17 02/05/17 02/05/17 06:59 14:59 22:59 06:59 14:59 22:59 Intake Total 1100 ml 720 ml 470 ml Balance 1100 ml 720 ml 470 ml Intake Oral 720 ml 60 ml Packed Cells 600 ml 400 ml Platelets 290 ml Blood Product IV Normal Saline Flush 210 ml 10 ml # Voids 2 3 1 # Bowel Movements 0 0 Result Diagram: 02/05/17 0920 02/04/17 0734 Objective Remarks GENERAL: This is a thin fragile well-developed patient, in no apparent distress. SKIN: No rashes, warm and dry HEAD: Atraumatic. Normocephalic. EYES: Pupils equal round and reactive. Extraocular motions intact. No scleral icterus. ENT: Nose without bleeding, or drainage, Airway patent. NECK: Trachea midline. Supple CARDIOVASCULAR: Regular rate and rhythm without murmurs, gallops, or rubs. RESPIRATORY: Fair air entry bilaterally. No wheezes, rales, or rhonchi. GASTROINTESTINAL: Abdomen soft, non-tender, nondistended. Positive bowel sounds MUSCULOSKELETAL: Extremities without clubbing, cyanosis, or edema. Pedal pulses appreciated NEUROLOGICAL: Awake and alert. Moves all extremity. Normal speech.no focal neurological deficit A/P Problem List: (1) Anemia ICD Code: D64.9 - Anemia, unspecified Status: Acute (2) Thrombocytopenia ICD Code: D69.6 - Thrombocytopenia, unspecified Status: Acute (3) UTI (urinary tract infection) ICD Code: N39.0 - Urinary tract infection, site not specified (4) RIGOBERTO (acute kidney injury) ICD Code: N17.9 - Acute kidney failure, unspecified Assessment and Plan Acute anemia possible GI loss symptomatic: Hemoglobin 4.4, after 3 units RBC, Hemoccult stool negative, will give another 1 unit of PRBC, appreciated hematology oncology consultation, Status post bone biopsy today cleared by oncology to be discharged and follow up as an outpatient Thrombocytopenia: Platelet 18,000, no signs of bleeding or ecchymosis, followed by social work program coordinator RIGOBERTO: Follow creatinine, iv fluid hydration, BMP, avoid nephrotoxin UTI: UA positive for infection started on Rocephin, follow urine culture, iv hydration DVT prophylaxis, no chemical prophylaxis due to anemia and thrombocytopenia Discharge Planning Patient cleared medically for discharge, D/W case maker, PT recommended rehabilitation, 308 signed, discharge order placed Problem Qualifiers (1) Anemia: Qualified Codes: D64.9 - Anemia, unspecified Aida Neal MD Feb 05, 2017 17:11
[2017-02-06] VITALS: BP 187/67; PULSE 70; RESP 18; TEMP 97.8; O2SAT 98
[2017-02-06 04:00] VITALS: BP 155/75; PULSE 70; RESP 18; TEMP 98.1; O2SAT 97
[2017-02-06 07:50] VITALS: BP 159/77; PULSE 77; RESP 20; TEMP 97.4; O2SAT 98
[2017-02-06] MEDS: DOCUSATE SODIUM 50 MG/SENNA 8.6 MG TAB PO SCH (07:57)
[2017-02-06] MEDS: CIPROFLOXACIN 400 MG PREMIX 200 ML IV SCH (07:57)
[2017-02-06] MEDS: SODIUM CHLORIDE 0.9% FLUSH 10 ML FLUSH IV FLUSH SCH (07:58)
[2017-02-06 09:02] LABS: AUTOMATED NEUTROPHIL # 2.1 TH/MM3 (1.8-7.7); BASOPHIL % 0.7 % (0.0-2.0); EOSINOPHIL # 0.3 TH/MM3 (0-0.4); EOSINOPHIL % 8.6 % (0.0-4.0); LYMPH % 19.3 % (9.0-44.0); LYMPHOCYTE # 0.6 TH/MM3 (1.0-4.8); MEAN CORPUSCULAR HEMOGLOBIN 31.4 PG (27.0-34.0); MEAN CORPUSCULAR HGB CONC 34.5 % (32.0-36.0); MONO % 5.3 % (0.0-8.0); NEUT % 66.1 % (16.0-70.0); PLATELET COUNT 47 TH/MM3 (150-450); RED BLOOD COUNT 3.19 MIL/MM3 (4.00-5.30); RED CELL DISTRIBUTION WIDTH 15.5 % (11.6-17.2); WHITE BLOOD COUNT 3.2 TH/MM3 (4.0-11.0)
[2017-02-06 09:04] LABS: HEMO FLAGS AUTO DIFF
[2017-02-06 09:34] LABS: OVALOCYTES 1+ (NORMAL)
[2017-02-06 09:35] LABS: PLATELET ESTIMATE SMEAR LOW (NORMAL); PLATELET MORPHOLOGY ENLARGED (NORMAL); SCAN/DIFF AUTO DIFF CONFIRMED
--- NOTE | 2017-02-06 10:50 | PD.ONC.PN ---
Subjective Subjective Remarks Afebrile overnight. Patient resting in bed in nad. Sister Merly at bedside. tolerated bone marrow biopsy yesterday without problems. Objective Data Date Time Temp Pulse Resp B/P (MAP) Pulse Ox O2 Delivery O2 Flow Rate FiO2 02/06/17 07:50 97.4 77 20 159/77 (104) 98 02/06/17 04:00 98.1 70 18 155/75 (101) 97 02/06/17 00:00 97.8 70 18 187/67 (107) 98 02/05/17 20:00 98.3 73 18 111/53 (72) 99 02/05/17 16:47 98.2 82 16 137/62 (87) 98 02/05/17 14:41 98.2 65 16 136/65 (88) 98 02/05/17 12:52 70 17 155/79 (104) 97 02/05/17 12:22 98.2 78 16 159/85 (109) 91 Result Diagram: 02/06/17 0835 02/04/17 0734 Laboratory Results Laboratory Tests Test 02/05/17 12:00 02/06/17 08:35 White Blood Count 3.2 TH/MM3 Red Blood Count 3.19 MIL/MM3 Hemoglobin 10.0 GM/DL Hematocrit 29.0 % Mean Corpuscular Volume 91.0 FL Mean Corpuscular Hemoglobin 31.4 PG Mean Corpuscular Hemoglobin Concent 34.5 % Red Cell Distribution Width 15.5 % Platelet Count 47 TH/MM3 Mean Platelet Volume 8.0 FL Neutrophils (%) (Auto) 66.1 % Lymphocytes (%) (Auto) 19.3 % Monocytes (%) (Auto) 5.3 % Eosinophils (%) (Auto) 8.6 % Basophils (%) (Auto) 0.7 % Neutrophils # (Auto) 2.1 TH/MM3 Lymphocytes # (Auto) 0.6 TH/MM3 Monocytes # (Auto) 0.2 TH/MM3 Eosinophils # (Auto) 0.3 TH/MM3 Basophils # (Auto) 0.0 TH/MM3 CBC Comment AUTO DIFF Differential Comment AUTO DIFF CONFIRMED Platelet Estimate LOW Platelet Morphology Comment ENLARGED Ovalocytes 1+ Culture Results Microbiology Date/Time Source Procedure Growth Status 02/03/17 17:50 Urine Clean Catch Urine Culture - Final <10,000 CFU/ML MIXED STEFANIE... Complete Administered Medications Medications (Trade) Dose Ordered Sig/Edwina Route PRN Reason Start Time Stop Time Status Last Admin Dose Admin Sodium Chloride (NS Flush) 2 ml BID IV FLUSH 02/03/17 21:00 02/06/17 07:58 Senna/Docusate Sodium (Nitza-Colace) 1 tab BID PO 02/03/17 21:00 02/06/17 07:57 Magnesium Hydroxide (Milk Of Magnesia Liq) 30 ml Q12H PRN PO MILD - MODERATE CONSTIPATION 02/03/17 19:30 02/04/17 21:08 Ciprofloxacin/ Dextrose 200 ml @ 200 mls/hr Q24H IV 02/04/17 09:00 02/06/17 07:57 Objective Remarks GENERAL: Elderly female lying in bed resting. SKIN: Warm and dry. HEAD: Normocephalic. EYES: No injection or drainage. NECK: Supple, trachea midline. CARDIOVASCULAR: Regular rate and rhythm RESPIRATORY: Breath sounds equal bilaterally. No accessory muscle use. GASTROINTESTINAL: Abdomen soft, non-tender, nondistended. EXTREMITIES: No cyanosis NEUROLOGICAL: awake and alert, normal speech. Assessment/Plan Problem List: (1) Bicytopenia ICD Codes: D75.89 - Other specified diseases of blood and blood-forming organs Plan: --+anemia and thrombocytopenia --nonspecific peripheral smear findings. --no dysplastic or dysmorphic findings. --iron studies show no iron deficiency --serum protein electrophoresis pending --s/p bone marrow biopsy on 02/05 in IR Assessment 77y/o female with severe anemia and thrombocytopenia, findings concerning for a primary bone marrow disorder. Plan 1. patient clear for discharge 2. d/w patient and sister that results will take about one week. 3. patient's sister will coordinate a time with new patient referrals for patient's appointment 4. monitor CBC Jenn Ruiz Feb 06, 2017 10:50
[2017-02-06 11:50] VITALS: BP 147/68; PULSE 78; RESP 20; TEMP 98.5; O2SAT 96
--- NOTE | 2017-02-06 14:26 | HHI.PR ---
Subjective Remarks patient doing well stable no acute issue overnight awaiting discharge placement, discussed with the patient and her sister Objective Vitals Vital Signs Date Time Temp Pulse Resp B/P (MAP) Pulse Ox O2 Delivery O2 Flow Rate FiO2 02/06/17 11:50 98.5 78 20 147/68 (94) 96 02/06/17 07:50 97.4 77 20 159/77 (104) 98 02/06/17 04:00 98.1 70 18 155/75 (101) 97 02/06/17 00:00 97.8 70 18 187/67 (107) 98 02/05/17 20:00 98.3 73 18 111/53 (72) 99 02/05/17 16:47 98.2 82 16 137/62 (87) 98 02/05/17 14:41 98.2 65 16 136/65 (88) 98 I/O 02/05/17 02/05/17 02/05/17 02/06/17 02/06/17 02/06/17 07:00 15:00 23:00 07:00 15:00 23:00 # Voids 2 Result Diagram: 02/06/17 0835 02/04/17 0734 Objective Remarks GENERAL: This is a thin fragile well-developed patient, in no apparent distress. SKIN: No rashes, warm and dry HEAD: Atraumatic. Normocephalic. EYES: Pupils equal round and reactive. Extraocular motions intact. No scleral icterus. ENT: Nose without bleeding, or drainage, Airway patent. NECK: Trachea midline. Supple CARDIOVASCULAR: Regular rate and rhythm without murmurs, gallops, or rubs. RESPIRATORY: Fair air entry bilaterally. No wheezes, rales, or rhonchi. GASTROINTESTINAL: Abdomen soft, non-tender, nondistended. Positive bowel sounds MUSCULOSKELETAL: Extremities without clubbing, cyanosis, or edema. Pedal pulses appreciated NEUROLOGICAL: Awake and alert. Moves all extremity. Normal speech.no focal neurological deficit A/P Problem List: (1) Anemia ICD Code: D64.9 - Anemia, unspecified Status: Acute (2) Thrombocytopenia ICD Code: D69.6 - Thrombocytopenia, unspecified Status: Acute (3) UTI (urinary tract infection) ICD Code: N39.0 - Urinary tract infection, site not specified (4) RIGOBERTO (acute kidney injury) ICD Code: N17.9 - Acute kidney failure, unspecified Assessment and Plan Acute anemia possible GI loss symptomatic: Hemoglobin 4.4, after 3 units RBC, Hemoccult stool negative, will give another 1 unit of PRBC, appreciated hematology oncology consultation, Status post bone biopsy cleared by oncology to be discharged and follow up as an outpatient Thrombocytopenia: Platelet 18,000, no signs of bleeding or ecchymosis, followed by accounting reconciliation clerk RIGOBERTO: Follow creatinine, iv fluid hydration, BMP, avoid nephrotoxin UTI: UA positive for infection started on Rocephin, follow urine culture, iv hydration DVT prophylaxis, no chemical prophylaxis due to anemia and thrombocytopenia 02/06: awaiting placement hopefully today discussed with wrapper caser Discharge Planning difficulty placing in rehabilitation patient decided to go home or offer home PT Problem Qualifiers (1) Anemia: Qualified Codes: D64.9 - Anemia, unspecified Aida Neal MD Feb 06, 2017 14:26
[2017-02-06 15:50] VITALS: BP 134/65; PULSE 78; RESP 20; TEMP 99.5; O2SAT 97
[2017-02-06] MEDS ORDERED: CIPROFLOXACIN 500 MG TAB PO SCH (21:00)
[2017-02-06 22:04] LABS: ALPHA 1 GLOBULIN 0.23 GM/DL (0.11-0.29); ALPHA 2 GLOBULIN 0.53 GM/DL (0.22-1.00); BETA GLOBULINS (SPE) 0.58 GM/DL (0.53-1.03)
--- NOTE | 2017-02-07 09:03 | HHI.DS ---
Discharge Summary Admission Date Feb 03, 2017 at 19:23 Discharge Date: Feb 06, 2017 Admitting Diagnosis critical anemia, thrombocytopenia, pyuria (1) Anemia ICD Code: D64.9 - Anemia, unspecified Status: Acute (2) Thrombocytopenia ICD Code: D69.6 - Thrombocytopenia, unspecified Status: Acute (3) UTI (urinary tract infection) ICD Code: N39.0 - Urinary tract infection, site not specified (4) RIGOBERTO (acute kidney injury) ICD Code: N17.9 - Acute kidney failure, unspecified Procedures bone marrow biopsy Brief History - From Admission This a 77-year-old female with a PMH of HTN and Osteoporosis who was brought to the ER by Sister secondary to progressive weakness, dizziness and c/o headache for approx 2-3 wks. Sister lives in [place], [facility] she became concerned that pt was having ongoing weakness/dizziness and drove up from [place] to check on her. Upon arrival, pt was noted to be very weak and frail, "walking like she's drunk ". On arrival, BP 140/60, HR 104, O2 sat 98% on RA, Afebrile. Creatinine 1.39 , previously 1.00 on 04/23/09. Trop negative. U/a positive for UTI. WBC 4.1. Hemoglobin 4.4, previously 12.0 on 04/23/09. Platelets 18, previously 242 on 04/23/09. Per Sister pt follows w/ her PCP, Dr. Johnston, states pt was referred to [facility] as outpatient several months ago for "low platelets", however pt apparently never followed up. 2u pRBC and 2 Platelets ordered in ER, pending transfusion. Hemoccult (-). CBC/BMP: 02/06/17 0835 02/04/17 0734 Significant Findings Laboratory Tests Test 02/04/17 12:50 02/04/17 13:26 02/05/17 09:20 02/05/17 12:00 Red Blood Count 2.32 MIL/MM3 (4.00-5.30) 2.95 MIL/MM3 (4.00-5.30) Hemoglobin 7.3 GM/DL (11.6-15.3) 9.3 GM/DL (11.6-15.3) Hematocrit 20.8 % (35.0-46.0) 26.2 % (35.0-46.0) Platelet Count 102 TH/MM3 (150-450) 65 TH/MM3 (150-450) Eosinophils (%) (Auto) 6.9 % (0.0-4.0) 8.3 % (0.0-4.0) Lymphocytes # (Auto) 0.7 TH/MM3 (1.0-4.8) 0.8 TH/MM3 (1.0-4.8) Prothrombin Time 12.5 SEC (9.8-11.6) White Blood Count 3.5 TH/MM3 (4.0-11.0) Test 02/06/17 08:35 White Blood Count 3.2 TH/MM3 (4.0-11.0) Red Blood Count 3.19 MIL/MM3 (4.00-5.30) Hemoglobin 10.0 GM/DL (11.6-15.3) Hematocrit 29.0 % (35.0-46.0) Platelet Count 47 TH/MM3 (150-450) Eosinophils (%) (Auto) 8.6 % (0.0-4.0) Lymphocytes # (Auto) 0.6 TH/MM3 (1.0-4.8) Platelet Estimate LOW (NORMAL) Platelet Morphology Comment ENLARGED (NORMAL) Ovalocytes 1+ (NORMAL) PE at Discharge GENERAL: This is a thin fragile well-developed patient, in no apparent distress. SKIN: No rashes, warm and dry HEAD: Atraumatic. Normocephalic. EYES: Pupils equal round and reactive. Extraocular motions intact. No scleral icterus. ENT: Nose without bleeding, or drainage, Airway patent. NECK: Trachea midline. Supple CARDIOVASCULAR: Regular rate and rhythm without murmurs, gallops, or rubs. RESPIRATORY: Fair air entry bilaterally. No wheezes, rales, or rhonchi. GASTROINTESTINAL: Abdomen soft, non-tender, nondistended. Positive bowel sounds MUSCULOSKELETAL: Extremities without clubbing, cyanosis, or edema. Pedal pulses appreciated NEUROLOGICAL: Awake and alert. Moves all extremity. Normal speech.no focal neurological deficit Hospital Course Acute anemia possible GI loss symptomatic: Hemoglobin 4.4, after 3 units RBC, Hemoccult stool negative, will give another 1 unit of PRBC, appreciated hematology oncology consultation, Status post bone biopsy cleared by oncology to be discharged and follow up as an outpatient Thrombocytopenia: Platelet 18,000, no signs of bleeding or ecchymosis, followed by flake miller helper RIGOBERTO: Follow creatinine, iv fluid hydration, BMP, avoid nephrotoxin UTI: UA positive for infection started on Rocephin, follow urine culture, iv hydration DVT prophylaxis, no chemical prophylaxis due to anemia and thrombocytopenia I discussed with the patient's sister and the briefcase sewer on the day of discharge patient decline rehabilitation, we'll try with home health PT Pt Condition on Discharge: Fair Discharge Disposition: Discharge Home Discharge Time: > 30 minutes Discharge Instructions DIET: Follow Instructions for: Heart Healthy Diet Activities you can perform: Weight Bearing as Danial Follow up Referrals: Oncology - 1 Week with Vinod Moore MD Continued Medications: Amlodipine (Amlodipine) 5 Mg Tab 5 MG PO DAILY for Blood Pressure Management, #30 TAB 0 Refills Meclizine (Meclizine) 12.5 Mg Tab 12.5 MG PO TID PRN for VERTIGO, TAB 0 Refills Metoprolol Tartrate (Metoprolol Tartrate) 50 Mg Tab 50 MG PO BID, #60 TAB 0 Refills Raloxifene (Raloxifene) 60 Mg Tab 60 MG PO DAILY for Chemotherapy Management, #30 TAB 0 Refills Aida Neal MD Feb 07, 2017 09:03
== END 2017-02-06 18:21 | DRG 812 ==
LOC: NEPE 16:16 → NEDA 19:23 → N05A 21:24
PROVIDERS: ADMIT Hospitalist; ATTEND Hospitalist
PROC: 6A550Z2 Pheresis of Platelets, Single (ICD-10-PCS; principal; 2017-02-03)
PROC: 30233N1 Transfusion of Nonautologous Red Blood Cells into Peripheral Vein, Percutaneous Approach (ICD-10-PCS; 2017-02-03)
PROC: 07DR3ZX Extraction of Iliac Bone Marrow, Percutaneous Approach, Diagnostic (ICD-10-PCS; 2017-02-05)
DX: D64.9 Anemia, unspecified (principal); N17.9 Acute kidney failure, unspecified; R64 Cachexia; D69.6 Thrombocytopenia, unspecified; N39.0 Urinary tract infection, site not specified; M81.0 Age-related osteoporosis without current pathological fracture; E78.00 Pure hypercholesterolemia, unspecified; I10 Essential (primary) hypertension; M16.0 Bilateral primary osteoarthritis of hip; M47.9 Spondylosis, unspecified; M17.0 Bilateral primary osteoarthritis of knee; R62.7 Adult failure to thrive
CPT/HCPCS: 36430; 38221; 70450; 71010; 77012; 80053; 81001; 82550; 82607; 82728; 82746; 83540; 83550; 83735; 83880; 84165; 84484; 85025; 85097; 85610; 85730; 86850; 86900; 86901; 86920; 87086; 88184; 88185; 88237; 88264; 88280; 88305; 88311; 88313; 88341; 93005; 96374; 96375; 99152; 99153; C1830; J0696; J0744; J1940; J2250; J2405; J3010; J7030; P9016; P9035; P9037

== ENCOUNTER 2017-04-25 14:08 | Inpatient (IN) | payer OTHER, MEDICAID, MEDICARE ==
[2017-04-25] VITALS (8 sets, daily range): BP systolic 132–157; BP diastolic 60–76; PULSE 85–96; RESP 16–24; TEMP 99–101.3; O2SAT 96–100
[~2017-04-25 14:08] MED LIST changes: +AMLO5TAB2 PO; -AMLO5TAB22 PO; +MECL12.574 PO; +METO50TA PO; +RALO1TAB PO; -RALO1TAB13 PO; -TRAM-388 PO; -ZOCO40TA PO
[2017-04-25] MEDS ORDERED: SODIUM CHLOR 0.9% 250 ML INJ 250 ML IV ONE (14:30)
[2017-04-25] MEDS ORDERED: VITA1000 PO (14:54)
[2017-04-25 15:26] LABS: CALCIUM 8.5 MG/DL (8.5-10.1); CREATININE 1.09 MG/DL (0.50-1.00)
[2017-04-25 15:52] LABS: AUTOMATED NEUTROPHIL # 1.2 TH/MM3 (1.8-7.7); BASOPHIL % 0.4 % (0.0-2.0); EOSINOPHIL % 1.4 % (0.0-4.0); LYMPHOCYTE # 0.6 TH/MM3 (1.0-4.8); MEAN CELL VOLUME 82.5 FL (80.0-100.0); MEAN CORPUSCULAR HEMOGLOBIN 28.3 PG (27.0-34.0); MEAN CORPUSCULAR HGB CONC 34.3 % (32.0-36.0); MEAN PLATELET VOLUME 9.4 FL (7.0-11.0); MONO % 9.7 % (0.0-8.0); MONOCYTE # 0.2 TH/MM3 (0-0.9); NEUT % 58.5 % (16.0-70.0); RED BLOOD COUNT 2.47 MIL/MM3 (4.00-5.30); RED CELL DISTRIBUTION WIDTH 14.5 % (11.6-17.2); WHITE BLOOD COUNT 2.1 TH/MM3 (4.0-11.0)
[2017-04-25 15:59] LABS: HEMATOCRIT 20.4 % (35.0-46.0); PLATELET COUNT 4 TH/MM3 (150-450)
--- NOTE | 2017-04-25 16:00 | PD ---
HPI Chief Complaint: Abnormal Results Time Seen by Provider: 14:27 Travel History International Travel<30 days: No Contact w/Intl Traveler<30days: No Traveled to known affect area: No History of Present Illness HPI This is a 77-year-old [place] female with a history of leukemia, who presents here at the request of her oncologist for a platelet level of less than 5. The patient has frequent transfusions of both blood and platelets secondary to her leukemia. She reports weakness and exertional shortness of breath. The chest pain, chest pressure. As no reported fevers, chills. There are no other complaints time of my examination. PFSH Past Medical History Asthma: No Autoimmune Disease: No Heart Rhythm Problems: No Cancer: Yes (LEUKEMIA, MULTIPLE BLOOD TRANSFUSIONS) Cardiovascular Problems: Yes (HTN) High Cholesterol: Yes Chemotherapy: No Chest Pain: No Congestive Heart Failure: No COPD: No Cerebrovascular Accident: No Diabetes: No Diminished Hearing: No Endocrine: No GERD: No Genitourinary: No Hiatal Hernia: No Hypertension: Yes Immune Disorder: No Kidney Stones: No Musculoskeletal: Yes (OSTEOPORISIS) Neurologic: Yes Psychiatric: No Reproductive: No Respiratory: Yes Migraines: Yes Myocardial Infarction: No Radiation Therapy: No Renal Failure: Yes Seizures: No Sickle Cell Disease: No Sleep Apnea: No Thyroid Disease: No Ulcer: No Tetanus Vaccination: < 5 Years Influenza Vaccination: No Past Surgical History Abdominal Surgery: Yes (TUMOR REMOVED FROM STOMACH) AICD: No Arteriovenous Shunt: No Gynecologic Surgery: Yes (RIGHT BREAST CYST REMOVED) Hysterectomy: Yes Insulin Pump: No Joint Replacement: No Pacemaker: No Social History Alcohol Use: No Tobacco Use: No Substance Use: No Allergies-Medications (Allergen,Severity, Reaction): Coded Allergies: penicillin G (Unverified Allergy, Intermediate, 04/25/17) Reported Meds & Prescriptions Reported Meds & Active Scripts Active Reported Vitamin D-1000 (Cholecalciferol) 1,000 Unit Tab 1,000 Units PO DAILY Metoprolol Tartrate 50 Mg Tab 50 Mg PO BID Raloxifene (Raloxifene HCl) 60 Mg Tab 60 Mg PO DAILY Amlodipine (Amlodipine Besylate) 5 Mg Tab 5 Mg PO DAILY Meclizine (Meclizine HCl) 12.5 Mg Tab 12.5 Mg PO TID PRN Review of Systems Except as stated in HPI: all other systems reviewed are Neg General / Constitutional: No: Fever, Chills HENT: No: Headaches, Lightheadedness, Nosebleed, Neck Pain, Gingival Bleeding Cardiovascular: No: Chest Pain or Discomfort Respiratory: Positive: Shortness of Breath (exertional), No: Cough Gastrointestinal: Positive: Other (no melena), No: Nausea, Vomiting, Hematochezia Genitourinary: No: Frequency, Dysuria Musculoskeletal: Positive: Weakness, No: Pain Neurologic: Positive: Weakness, No: Dizziness, Headache Physical Exam Narrative GENERAL: Well-nourished, well-developed patient. SKIN: Focused skin assessment warm/dry. HEAD: Normocephalic/atraumatic. EYES: No scleral icterus. No injection or drainage. Pale conjunctiva. NECK: Supple, trachea midline. No JVD or lymphadenopathy. CARDIOVASCULAR: Regular rate and rhythm without murmurs, gallops, or rubs. RESPIRATORY: Breath sounds equal bilaterally. No accessory muscle use. GASTROINTESTINAL: Abdomen soft, non-tender, nondistended. MUSCULOSKELETAL: No cyanosis, or edema. NEUROLOGICAL: Awake and alert. Cranial nerves II through XII intact. Motor grossly within normal limits. Five out of 5 muscle strength in all muscle groups. Normal speech. Data Data Last Documented VS Vital Signs Date Time Temp Pulse Resp B/P (MAP) Pulse Ox O2 Delivery O2 Flow Rate FiO2 04/25/17 17:01 99.2 87 20 132/63 (86) 98 Room Air Orders Orders Complete Blood Count With Diff (04/25/17 14:27) Basic Metabolic Panel (Bmp) (04/25/17 14:27) Iv Access Insert/Monitor (04/25/17 14:27) Ecg Monitoring (04/25/17 14:27) Oximetry (04/25/17 14:27) Type And Screen (04/25/17 14:30) Red Blood Cells (Rbc) (04/25/17 14:30) Platelet Pheresis (04/25/17 14:30) Sodium Chlor 0.9% 250 Ml Inj (Ns 250 Ml (04/25/17 14:30) Place In Observation (04/25/17 ) Vital Signs (Adult) Q4H (04/25/17 16:37) Activity Oob With Assistance (04/25/17 16:37) Supervisor [facility] / Telemetry .CONTINUOUS (04/25/17 16:37) Diet Heart Healthy (04/25/17 Dinner) Sodium Chloride 0.9% Flush (Ns Flush) (04/25/17 16:45) Sodium Chloride 0.9% Flush (Ns Flush) (04/25/17 21:00) Basic Metabolic Panel (Bmp) (04/26/17 06:00) Complete Blood Count With Diff (04/26/17 06:00) Pt Request For Service (04/25/17 16:37) Case Management Consult (04/25/17 16:37) Naloxone Inj (Narcan Inj) (04/25/17 16:45) Consult Medical Oncology (04/25/17 ) (Hub Use Only)Inp Phy Cons/Ref (04/25/17 ) Admit Order (Ed Use Only) (04/25/17 17:01) Labs Laboratory Tests Test 04/25/17 14:40 White Blood Count 2.1 TH/MM3 Red Blood Count 2.47 MIL/MM3 Hemoglobin 7.0 GM/DL Hematocrit 20.4 % Mean Corpuscular Volume 82.5 FL Mean Corpuscular Hemoglobin 28.3 PG Mean Corpuscular Hemoglobin Concent 34.3 % Red Cell Distribution Width 14.5 % Platelet Count 4 TH/MM3 Mean Platelet Volume 9.4 FL Neutrophils (%) (Auto) 58.5 % Lymphocytes (%) (Auto) 30.0 % Monocytes (%) (Auto) 9.7 % Eosinophils (%) (Auto) 1.4 % Basophils (%) (Auto) 0.4 % Neutrophils # (Auto) 1.2 TH/MM3 Lymphocytes # (Auto) 0.6 TH/MM3 Monocytes # (Auto) 0.2 TH/MM3 Eosinophils # (Auto) 0.0 TH/MM3 Basophils # (Auto) 0.0 TH/MM3 CBC Comment AUTO DIFF Differential Comment AUTO DIFF CONFIRMED Platelet Estimate LOW Platelet Morphology Comment NORMAL Blood Urea Nitrogen 23 MG/DL Creatinine 1.09 MG/DL Random Glucose 100 MG/DL Calcium Level 8.5 MG/DL Sodium Level 138 MEQ/L Potassium Level 3.8 MEQ/L Chloride Level 105 MEQ/L Carbon Dioxide Level 27.0 MEQ/L Anion Gap 6 MEQ/L Estimat Glomerular Filtration Rate 49 ML/MIN MDM Medical Decision Making Medical Screen Exam Complete: Yes Emergency Medical Condition: Yes Differential Diagnosis Thrombocytopenia versus anemia versus pancytopenia Narrative Course 77 year old female history leukemia, presents after being sent here by her oncologist, Dr. Moore. The patient had reported plate count less than 5000. The patient's platelet count is 4000. Her hemoglobin is 7.0. The patient usually gets monthly transfusions. A pack of platelets and unit of packed red blood cells of been ordered. The patient be admitted for observation for transfusion. Case was discussed with [facility]. Najera[facility] who is agreeable for the observation admission. Diagnosis Primary Impression: Thrombocytopenia Additional Impressions: Anemia Leukopenia History of leukemia Dyspnea on exertion Admitting Information Admitting Physician Requests: Observation Miguel Sweeney MD Apr 25, 2017 16:00
[2017-04-25] MEDS ORDERED: SODIUM CHLORIDE 0.9% FLUSH 10 ML FLUSH IV FLUSH PRN (16:45)
[2017-04-25] MEDS ORDERED: NALOXONE HCL 0.4 MG/ML AMP IV PUSH PRN (16:45)
--- NOTE | 2017-04-25 18:04 | HHI.HP ---
[facility] Primary Care Physician Douglas Johnston MD Admission Diagnosis thrombocytopenia. Anemia. Leukopenia. History of leukemia. Diagnoses: Travel History International Travel<30 Days: No Contact w/Intl Traveler <30 Da: No Traveled to Known Affected Are: No History of Present Illness History from patient, ER physician and review of medical records. Patient's sister was not available at the bedside at the time of my interview. Oncology notes from April 19, 2017 clinic visit reviewed. Patient reported that her oncologist had called her at home today to contact to the hospital for transfusion. She was told that her platelets were a lot slower than normal and that she needed transfusion. She reports she has had prior transfusion but never was this low. She however denies any significant symptoms such as chest pain/dizziness/near syncopal episodes. She does report of occasional dyspnea. Patient denies any signs and symptoms suggestive of acute blood loss. Specifically, she denies any black stool/red stool/blood in her urine. Denies any nosebleeds. Denies any falls or trauma. 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 She stated she was told there was no treatment for it. She lives alone. She lost her in 1990. Her sister is visiting here from [place]. She reports that she has plans to move in with her sister in [place]. 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 Diagnosed January 2017 Past Surgical History Breast biopsy Hysterectomy Colonoscopy Allergies: Coded Allergies: penicillin G (Unverified Allergy, Intermediate, 04/25/17) Family History Denies any family history of any significant medical issues Social History Denies ever smoking cigarettes/alcohol abuse/drug abuse. Lives by herself here. Sister is visiting here from [place]. Lost her in 1990. Moved to the [facility] in 1974 from the [facility]. Physical Exam Vital Signs Vital Signs Date Time Temp Pulse Resp B/P (MAP) Pulse Ox O2 Delivery O2 Flow Rate FiO2 04/25/17 17:42 99.0 87 20 132/63 97 04/25/17 17:18 99.2 88 16 132/63 97 04/25/17 17:01 99.2 87 20 132/63 (86) 98 Room Air 04/25/17 14:11 100.4 93 22 157/68 (97) 98 Room Air Physical Exam GENERAL: This is a very pleasant, thin elderly lady, in no apparent distress. SKIN: No rashes, ecchymoses or lesions. Cool and dry. HEAD: Atraumatic. Normocephalic. No temporal or scalp tenderness. EYES: No scleral icterus. No injection or drainage. ENT: Nose without bleeding, purulent drainage or septal hematoma. . Airway patent. NECK: Trachea midline. No JVD Supple, nontender, no meningeal signs. CARDIOVASCULAR: Regular rate and rhythm without murmurs, gallops, or rubs. RESPIRATORY: Clear to auscultation. Breath sounds equal bilaterally. No wheezes , rales, or rhonchi. GASTROINTESTINAL: Abdomen soft, non-tender, nondistended. No guarding. MUSCULOSKELETAL: Extremities without clubbing, cyanosis, or edema. No calf tenderness. NEUROLOGICAL: Awake and alert. Motor and sensory grossly within normal limits. Normal speech. Laboratory Laboratory Tests Test 04/25/17 14:40 White Blood Count 2.1 Red Blood Count 2.47 Hemoglobin 7.0 Hematocrit 20.4 Mean Corpuscular Volume 82.5 Mean Corpuscular Hemoglobin 28.3 Mean Corpuscular Hemoglobin Concent 34.3 Red Cell Distribution Width 14.5 Platelet Count 4 Mean Platelet Volume 9.4 Neutrophils (%) (Auto) 58.5 Lymphocytes (%) (Auto) 30.0 Monocytes (%) (Auto) 9.7 Eosinophils (%) (Auto) 1.4 Basophils (%) (Auto) 0.4 Neutrophils # (Auto) 1.2 Lymphocytes # (Auto) 0.6 Monocytes # (Auto) 0.2 Eosinophils # (Auto) 0.0 Basophils # (Auto) 0.0 CBC Comment AUTO DIFF Differential Comment AUTO DIFF CONFIRMED Platelet Estimate LOW Platelet Morphology Comment NORMAL Blood Urea Nitrogen 23 Creatinine 1.09 Random Glucose 100 Calcium Level 8.5 Sodium Level 138 Potassium Level 3.8 Chloride Level 105 Carbon Dioxide Level 27.0 Anion Gap 6 Estimat Glomerular Filtration Rate 49 Result Diagram: 04/25/17 1440 04/25/17 1440 Caprini VTE Risk Assessment Caprini VTE Risk Assessment: Mod/High Risk (score >= 2) Caprini Risk Assessment Model Point Value = 1 Point Value = 2 Point Value = 3 Point Value = 5 Age 41-60 Minor surgery BMI > 25 kg/m2 Swollen legs Varicose veins or History of unexplained or recurrent spontaneous Oral contraceptives or hormone replacement Sepsis (< 1 month) Serious lung disease, including pneumonia (< 1 month) Abnormal pulmonary function Acute myocardial infarction Congestive heart failure (< 1 month) History of inflammatory bowel disease Medical patient at bed rest Age 61-74 Arthroscopic surgery Major open surgery (> 45 min) Laparoscopic surgery (> 45 min) Malignancy Confined to bed (> 72 hours) Immobilizing plaster cast Central venous access Age >= 75 History of VTE Family history of VTE Factor V Leiden Prothrombin [id number] Lupus anticoagulant Anticardiolipin antibodies Elevated serum homocysteine Heparin-induced thrombocytopenia Other congenital or acquired thrombophilia Stroke (< 1 month) Elective arthroplasty Hip, pelvis, or leg fracture Acute spinal cord injury (< 1 month) Prophylaxis Regimen Total Risk Factor Score Risk Level Prophylaxis Regimen 0-1 Low Early ambulation 2 Moderate Order ONE of the following: *Sequential Compression Device (SCD) *Heparin 5000 units SQ BID 3-4 Higher Order ONE of the following medications: *Heparin 5000 units SQ TID *Enoxaparin/Lovenox 40 mg SQ daily (WT < 150 kg, CrCl > 30 mL/min) *Enoxaparin/Lovenox 30 mg SQ daily (WT < 150 kg, CrCl > 10-29 mL/min) *Enoxaparin/Lovenox 30 mg SQ BID (WT < 150 kg, CrCl > 30 mL/min) AND/OR *Sequential Compression Device (SCD) 5 or more Highest Order ONE of the following medications: *Heparin 5000 units SQ TID (Preferred with Epidurals) *Enoxaparin/Lovenox 40 mg SQ daily (WT < 150 kg, CrCl > 30 mL/min) *Enoxaparin/Lovenox 30 mg SQ daily (WT < 150 kg, CrCl > 10-29 mL/min) *Enoxaparin/Lovenox 30 mg SQ BID (WT < 150 kg, CrCl > 30 mL/min) AND *Sequential Compression Device (SCD) Assessment and Plan Assessment and Plan Impression: Pancytopenia Thrombocytopenia 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 Diagnosed January 2017 Hypertension Arthritis Plan: Transfuse 1 unit of platelets and 1 unit of PRBC. We'll monitor for evidence of bleeds. Fall precautions. Oncology consult with patient's oncologist. Resume home meds. DVT prophylaxis with SCD. Discussed Condition With patient, ER Vladimir Dominguez MD Apr 25, 2017 18:04
[2017-04-25] MEDS ORDERED: MECLIZINE HCL 25 MG TAB PO PRN (18:30)
[2017-04-25] MEDS: SODIUM CHLORIDE 0.9% FLUSH 10 ML FLUSH IV FLUSH SCH (21:00)
[2017-04-25] MEDS ORDERED: ACETAMINOPHEN 325 MG TAB PO ONE (21:30)
[2017-04-25] MEDS ORDERED: diphenhydrAMINE HCL 50 MG CAP PO ONE (21:30)
[2017-04-25] MEDS: METOPROLOL TARTRATE 50 MG TAB PO SCH (21:36)
[2017-04-26] VITALS (9 sets, daily range): BP systolic 96–138; BP diastolic 47–78; PULSE 74–88; RESP 14–20; TEMP 98–100.5; O2SAT 96–98
[2017-04-26 05:45] LABS: AUTOMATED NEUTROPHIL # 1.4 TH/MM3 (1.8-7.7); BASOPHIL % 0.9 % (0.0-2.0); EOSINOPHIL % 1.2 % (0.0-4.0); HEMATOCRIT 22.2 % (35.0-46.0); HEMOGLOBIN 7.8 GM/DL (11.6-15.3); LYMPH % 26.4 % (9.0-44.0); LYMPHOCYTE # 0.6 TH/MM3 (1.0-4.8); MEAN CELL VOLUME 82.1 FL (80.0-100.0); MEAN CORPUSCULAR HEMOGLOBIN 28.9 PG (27.0-34.0); MEAN CORPUSCULAR HGB CONC 35.2 % (32.0-36.0); MEAN PLATELET VOLUME 9.5 FL (7.0-11.0); MONOCYTE # 0.2 TH/MM3 (0-0.9); NEUT % 61.5 % (16.0-70.0); RED BLOOD COUNT 2.71 MIL/MM3 (4.00-5.30); RED CELL DISTRIBUTION WIDTH 14.3 % (11.6-17.2); WHITE BLOOD COUNT 2.2 TH/MM3 (4.0-11.0)
[2017-04-26 05:48] LABS: PLATELET COUNT 3 TH/MM3 (150-450)
[2017-04-26] MEDS ORDERED: diphenhydrAMINE HCL 25 MG CAP PO PRN ×2 (06:00→08:30)
[2017-04-26] MEDS ORDERED: ACETAMINOPHEN 325 MG TAB PO PRN ×2 (06:00→08:30)
[2017-04-26] MEDS ORDERED: SODIUM CHLOR 0.9% 250 ML INJ 250 ML IV ONE ×3 (06:00→08:15)
[2017-04-26 06:02] LABS: BICARBONATE 26.7 MEQ/L (21.0-32.0); CALCIUM 8.2 MG/DL (8.5-10.1); CREATININE 0.99 MG/DL (0.50-1.00)
[2017-04-26] MEDS: CEFEPIME INJ 2,000 MG in SODIUM CHLORIDE 0.9% INJ 100 ML IV SCH ×2 (08:56→21:18)
[2017-04-26] MEDS: amLODIPine BESYLATE 5 MG TAB PO SCH (08:56)
[2017-04-26] MEDS: SODIUM CHLORIDE 0.9% FLUSH 10 ML FLUSH IV FLUSH SCH ×2 (08:56→21:19)
[2017-04-26] MEDS: METOPROLOL TARTRATE 50 MG TAB PO SCH ×2 (08:56→21:00)
[2017-04-26] MEDS: CHOLECALCIFEROL (VIT D3) 1000 UNIT TAB PO SCH (08:56)
--- NOTE | 2017-04-26 09:07 | MB ---
cc: CHRISTIAN JULIAN MD DATE OF CONSULTATION: 04/26/2017 DATE OF : 1940 Consult requested by the hospitalist service. 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 TREATMENT HISTORY TO DATE The patient has been on outpatient supportive transfusions which she has required on a weekly basis over the past 6-8 weeks. CHIEF COMPLAINT Ms. Palmer reports feeling weak, tired and reports back pain. She also reports feeling warm this morning. HISTORY OF PRESENT ILLNESS Ms. Palmer is a very pleasant 77-year-old female whom I initially met as an inpatient consultation earlier this year; Ms. Palmer had at that time been admitted to [facility] for further workup and management of pancytopenia. Bone marrow biopsy was performed on 02/05/2017 and pathologic findings were consistent with a high-grade myeloid neoplasm associated with increased myeloid blasts. Pathologic findings were most consistent with an evolving acute myeloid leukemia versus a high-risk myelodysplastic syndrome. The patient was offered systemic therapy with a hypomethylating agent such as Vidaza, she however declined in favor of supportive transfusions. She had been considering palliative care and hospice and in fact met with the hospice intake nurses a week or two ago, she at that time felt she was not ready for hospice and favored continued outpatient supportive transfusions. Over the past 2 months her platelet counts have dropped down from 100,000 down to less than 5000, her hemoglobin and hematocrit have remained critically low at around 7 gm/dl. She is also increasingly neutropenic. Over the past 24 hours her T-max has been 101 degrees Fahrenheit. PAST MEDICAL HISTORY 1. 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 2. Hypertension. 3. Arthritis. 4. Rheumatoid arthritis. PAST SURGICAL HISTORY 1. Breast biopsy. 2. Bone marrow biopsy. 3. Hysterectomy. 4. Colonoscopy. ALLERGIES PENICILLIN. MEDICATIONS Current inpatient medications: 1. Cefepime 2 grams IV q.8 hours. 2. Vancomycin 1 gram IV q.12 hours. 3. Tylenol 650 mg p.o. as needed every 4 hours. 4. Amlodipine 5 mg p.o. daily. 5. Cholecalciferol 100 units p.o. daily. 6. Diphenhydramine 25 mg p.o. q.4 hours. 7. Meclizine 12.5 mg p.o. t.i.d. as needed for vertigo. 8. Metoprolol 50 mg p.o. b.i.d. 9. Evista 60 mg p.o. daily. FAMILY HISTORY No known oncologic diagnoses. SOCIAL HISTORY The patient is , she has no children of her own. She is originally from the [facility] and has been in the [place] since the 1970s. She has a sister who is a Registered Nurse living in [place], her sister is her major support and in fact since the patient has been diagnosed with her MDS, the patient's sister has moved in with her. REVIEW OF SYSTEMS 13-point review of systems were obtained, the following pertinent positives and negatives: CONSTITUTIONAL: The patient reports fevers, fatigue, weakness, loss of appetite, unintended weight loss. HEENT: Denies headaches, blurry vision, difficulty swallowing or soreness of throat. RESPIRATORY: Reports exertional dyspnea, denies pleuritic chest pain, denies cough or hemoptysis. CARDIOVASCULAR: Denies angina-like chest pain, PND, orthopnea. GI: Reports decreased appetite, denies difficulty swallowing, denies abdominal distension, denies hematochezia or melena. : No complaints. ONLINE COMMUNICATIONS SPECIALIST: Generally weak but no acute localizing symptoms or deficits. No other complaints reported. PHYSICAL EXAMINATION VITAL SIGNS: Temperature 98.7 degrees Fahrenheit (T-max over the past 24 hours was 101.3 degrees Fahrenheit), heart rate 78 beats per minute (ranging between 96 and 78 beats per minute), respiratory rate 18, blood pressure 138/60, O2 sats 97% on room air. GENERAL PHYSICAL APPEARANCE: Ms. Palmer is an elderly and frail-appearing female, she is of very petite build, she is laying in bed and is awake and alert. Her sister is at bedside. HEENT: Head is atraumatic, normocephalic, conjunctivae are pale, sclerae are anicteric, EOMI, PERRLA. ORAL EXAM: No pharyngeal erythema. NECK: No palpable cervical, supraclavicular lymphadenopathy. RESPIRATORY: Good air movement bilaterally without added breath sounds. CARDIOVASCULAR: Regular rate and rhythm, S1-S2. No obvious murmurs, rubs or gallops. ABDOMEN: Thin belly, soft, nontender, no palpable organ enlargement specifically splenomegaly. LOWER EXTREMITIES: No pretibial edema. No calf tenderness. MUSCULOSKELETAL: Generalized muscle atrophy. ONLINE COMMUNICATIONS SPECIALIST: Moving all four limbs spontaneously, no focal sensory motor deficits. LABORATORY FINDINGS Dated 04/26/2017: WBC count 2.2, hemoglobin 7.8 gm/dl, hematocrit 22%, platelet count 3000, absolute neutrophil count 1.4, absolute lymphocyte count 0.6. Chemistries: Sodium 139, potassium 3.8, chloride 106, bicarb 26.7, BUN 24, creatinine 0.99, EGFR 55 mL/min, calcium 8.2. ASSESSMENT Ms. 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 This is based on bone marrow biopsy findings from early January of 2017. The patient has been under my care since her initial diagnosis two and a half months ago and has been undergoing supportive red cell transfusions and platelet transfusions in the outpatient setting over this period of time. Unfortunately, she is now refractory to random donor platelet transfusions, likely due to development of alloantibodies. Her platelet count at the time of presentation was 4000, after 1 unit pooled platelets her platelet count has in fact decreased down to 3000. She was advised admission to the hospital for additional transfusions and supportive care. She has also had a fever of 101.3 degrees Fahrenheit since admission. RECOMMENDATIONS 1. 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 This patient is not a candidate for high dose chemotherapy and she is not a candidate for an allogeneic stem cell transplant. She has been offered supportive care / Hospice level of care, she has not yet quite decided if she will accept Hospice. She is certainly an appropriate candidate for hospice given the terminal nature of her high risk disease. The patient has been advised evaluation by palliative care to help her consider her options. I have placed a consult for palliative care. 2. Cytopenias: I would recommend transfusing HLA matched platelets should the patient wish to continue aggressive disease directed care. 3. Fever: I have requested blood and urine cultures and have empirically initiated her on cefepime and vancomycin. DISPOSITION Continue supportive care for now including transfusions and antibiotic infusions. I will request palliative care to help her decide on appropriate goals of care. She is Hospice appropriate. MD DAYANNA Holm/LINH /7:46 AM /8:12 AM
--- NOTE | 2017-04-26 09:58 | HHI.PR ---
Subjective Remarks Status post transfusion of packed red blood cells. Hemoglobin increased from 7.0-7.8. Status post 1 unit transfusion of platelets her platelets have dropped from 4 to 3. Fevers are present. Drop in platelets is likely secondary to immune last autoimmune etiology. Further transfusions ordered including immune screened platelets. No evidence of active bleeding. Objective Vital Signs Date Time Temp Pulse Resp B/P (MAP) Pulse Ox O2 Delivery O2 Flow Rate FiO2 04/26/17 07:59 99.5 82 18 136/60 (85) 96 04/26/17 04:43 98.7 78 18 138/60 (86) 97 04/25/17 22:00 100.6 96 18 134/60 (84) 96 04/25/17 20:37 101.3 94 20 144/66 98 04/25/17 20:06 100.4 90 17 142/76 100 04/25/17 18:55 04/25/17 18:48 85 24 134/60 (84) 96 Room Air 04/25/17 17:42 99.0 87 20 132/63 97 04/25/17 17:18 99.2 88 16 132/63 97 04/25/17 17:01 99.2 87 20 132/63 (86) 98 Room Air 04/25/17 14:11 100.4 93 22 157/68 (97) 98 Room Air I/O 04/25/17 04/25/17 04/25/17 04/26/17 04/26/17 04/26/17 07:00 15:00 23:00 07:00 15:00 23:00 Intake Total 775 ml Balance 775 ml Intake Packed Cells 400 ml Platelets 250 ml Blood Product IV Normal Saline Flush 125 ml Result Diagram: 04/26/17 0352 04/26/17 035 Objective Remarks GENERAL: NAD, A&Ox3 HEAD: Normocephalic. NECK: Supple, trachea midline. No lymphadenopathy. EYES: No scleral icterus. No injection or drainage. CARDIOVASCULAR: Regular rate and rhythm without murmurs, gallops, or rubs. RESPIRATORY: Breath sounds equal bilaterally. No accessory muscle use. GASTROINTESTINAL: Abdomen soft, non-tender, nondistended. MUSCULOSKELETAL: No cyanosis, or edema. SKIN: Warm and dry. NEURO: No focal neurological deficitis. A/P Problem List: (1) History of leukemia ICD Code: Z85.6 - Personal history of leukemia Status: Acute (2) Thrombocytopenia ICD Code: D69.6 - Thrombocytopenia, unspecified Status: Acute (3) Anemia ICD Code: D64.9 - Anemia, unspecified Status: Acute Assessment and Plan Assessment and plan 77-year-old female admitted secondary to pancytopenia with severe thrombocytopenia and anemia. High-grade myeloid neoplasm High-grade MDS versus AML Pancytopenia Thrombocytopenia Neutropenia Anemia 1 unit of packed red blood cells transfused 04/25/17 Transfuse 1 more unit of packed red blood cells on 04/26/17 1 unit of platelets transfused 04/25/17 Platelets are unimproved thus far Transfuse 2 units packed red blood cells 04/26/17 Follow CBC Oncology/hematology following Hypertension Arthritis Continue baseline treatments Follow blood pressures, presently stable DVT prophylaxis Jerald Seay MD Apr 26, 2017 09:58
[2017-04-26] MEDS: VANCOMYCIN INJ 1,000 MG in SODIUM CHLOR 0.9% 250 ML INJ 250 ML IV SCH ×2 (10:03→23:11)
--- NOTE | 2017-04-26 14:20 | PD.CONS ---
Consult Service Palliative Care Consult Requested By Dr. Moore . Primary Care Physician Doulgas Johnston MD . Reason for Consultation a. To assist with evaluation and management of symptoms including: Fatigue , weakness b. To assist medical decision maker(s) with: better understanding of current medical conditions; weighing benefits/burdens of medical treatment options; making medical treatment decisions. . HPI History of Present Illness This 77-year-old female, with a past history of rheumatoid arthritis and hypertension, was admitted to the hospital on 02/03/17 after presenting with several weeks of dizziness, fatigue, and cachexia. She was found to have a platelet count of 18,000 and was anemic, and workup included bone marrow biopsy that revealed a high-grade myeloid neoplasm. The patient required transfusion of platelets and red cells since that time, and has gradually been getting weaker. Her sister had moved into her home to help take care of her, and repeat lab work this week revealed a platelet count of 5000. She was sent back to the emergency department on 04/25/17, and findings at that time included: * Alert, somewhat cachectic * Temp 100.4, pulse 93, respirations 20, blood pressure 157 systolic, oxygen saturation 98% on room air * White count 2.1, hemoglobin 7.0, platelets 4000 * Sodium 138, creatinine 1.09 * No new imaging studies have been obtained. The patient was transfused with red cells and with platelets. After receiving a pack of platelets, her repeat platelet count was now just 3000. 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 The patient has designated her sister as healthcare surrogate, and had signed DNR papers recently. A chemical sales representative from hospice had visited with the patient at home a couple weeks ago, but she was "unsure" whether she wanted hospice assistance at that time. Palliative Care is now being consulted to assist with symptom management , and to enter into discussions with the patient and her sister regarding her current illnesses, the prognosis, and the benefits and burdens of the various treatment choices. . Function/Cognitive Trajectory She has been fatigued and weak, but was still ambulatory and functioning fairly independently at home . Review of Systems Constitutional: COMPLAINS OF: Fatigue, Weight loss Endocrine: DENIES: Polyuria Eyes: DENIES: Eye inflammation Ears, nose, mouth, throat: DENIES: Epistaxis Respiratory: DENIES: Cough, Shortness of breath Cardiovascular: DENIES: Chest pain, Palpitations, Syncope Gastrointestinal: DENIES: Black stools, Bloody stools, Constipation, Diarrhea, Vomiting blood Genitourinary: DENIES: Hematuria Musculoskeletal: DENIES: Back pain, Neck pain Integumentary: DENIES: Rash Hematologic/Lymphatics: COMPLAINS OF: Bruising ("sometimes") Immunologic/Allergic: DENIES: Urticaria Neurologic: DENIES: Localized weakness, Paresthesias, Seizures Psychiatric: DENIES: Hallucinations, Agitation Past Family Social History Coded Allergies: penicillin G (Unverified Allergy, Intermediate, 04/25/17) Past Medical History * Hypertension * Arthritis, and history of rheumatoid arthritis * 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 Diagnosed January 2017 . Past Surgical History * Breast biopsy * Hysterectomy * Colonoscopy * Benign gastric tumor . Reported Medications Reported Meds & Active Scripts Active Reported Vitamin D-1000 (Cholecalciferol) 1,000 Unit Tab 1,000 Units PO DAILY Metoprolol Tartrate 50 Mg Tab 50 Mg PO BID Raloxifene (Raloxifene HCl) 60 Mg Tab 60 Mg PO DAILY Amlodipine (Amlodipine Besylate) 5 Mg Tab 5 Mg PO DAILY Meclizine (Meclizine HCl) 12.5 Mg Tab 12.5 Mg PO TID PRN . Current Medications Medications (Trade) Dose Ordered Sig/Edwina Route Start Time Stop Time Status Last Admin (NS Flush) 2 ml UNSCH PRN IV FLUSH 04/25/17 16:45 (NS Flush) 2 ml BID IV FLUSH 04/25/17 21:00 04/26/17 08:56 (Narcan Inj) 0.4 mg UNSCH PRN IV PUSH 04/25/17 16:45 (Norvasc) 5 mg DAILY PO 04/26/17 09:00 04/26/17 08:56 (Vitamin D3) 1,000 units DAILY PO 04/26/17 09:00 04/26/17 08:56 (Antivert) 12.5 mg TID PRN PO 04/25/17 18:30 (Lopressor) 50 mg BID PO 04/25/17 21:00 04/26/17 08:56 (Evista) 60 mg DAILY PO 04/26/17 09:00 Cefepime HCl 2000 mg/Sodium Chloride 100 ml @ 200 mls/hr Q12H IV 04/26/17 08:00 04/26/17 08:56 Vancomycin HCl 1000 mg/Sodium Chloride 250 ml @ 250 mls/hr Q12H IV 04/26/17 09:00 04/26/17 10:03 (Tylenol) 650 mg Q4H PRN PO 04/26/17 08:30 04/26/17 11:23 (Benadryl) 25 mg Q4H PRN PO 04/26/17 08:30 04/26/17 11:22 Sodium Chloride 250 ml @ 15 mls/hr ONCE ONCE IV 04/26/17 08:15 04/27/17 00:54 Family History The patient's mother of "a blood problem in her brain," and her father of heart disease. One brother of throat cancer. There is no family history of leukemia. . Substance Use Tobacco: None Alcohol: None Prescription med abuse: None Illicits: None . Psychosocial History The patient was born and raised in the [facility]. She came to the [facility] in [place] , and moved to [place] in 1977. She was living alone until her sister moved up here from [place] recently to help her while she is ill. The patient was once, in 1990. She had no children. She has a sister Merly, a nurse who was living in [place] but is now living with her. . Spiritual/Cultural Factors The patient reports that she attends [employer], and she has not desired visits from the [facility] yet. . Living Will: Completed, but not made available Health Care Surrogate: Completed, but not made available Durable Power of Proof Sorter: Never completed Health Care Surrogate(s): The patient's sister is her healthcare surrogate . Documented care wishes: The patient reports she had a living will with typical language, but I have not been able to review it. . Today's verbally stated goals: The patient understands that she is terminal, and she tells me "I don't have long." She does want to focus on comfort now. She is willing to meet again with hospice, and asked that I speak with her sister about this also (which I did and she is much in favor of hospice services). The patient confirms that she does not want to be resuscitated. . Family/friends goals: The patient's sister is a nurse and understands the patient's terminality, and she requests hospice services, wanting to focus on comfort for whatever time the patient has left. . Ethical and Legal Issues There are no ethical issues that would impact her care or decision-making at this time. The patient has capacity for decision-making at this time. She has designated her sister Merly as healthcare surrogate. . Physical Exam Vital Signs Date Time Temp Pulse Resp B/P (MAP) Pulse Ox O2 Delivery O2 Flow Rate FiO2 04/26/17 12:04 98.0 78 14 108/62 98 04/26/17 11:47 99.6 77 16 120/78 98 04/26/17 07:59 99.5 82 18 136/60 (85) 96 04/26/17 04:43 98.7 78 18 138/60 (86) 97 04/25/17 22:00 100.6 96 18 134/60 (84) 96 04/25/17 20:37 101.3 94 20 144/66 98 04/25/17 20:06 100.4 90 17 142/76 100 04/25/17 18:55 04/25/17 18:48 85 24 134/60 (84) 96 Room Air 04/25/17 17:42 99.0 87 20 132/63 97 04/25/17 17:18 99.2 88 16 132/63 97 04/25/17 17:01 99.2 87 20 132/63 (86) 98 Room Air 04/25/17 14:11 100.4 93 22 157/68 (97) 98 Room Air Exam CONSTITUTIONAL/GENERAL: This is a thin, weak patient, in no apparent distress. TUBES/LINES/DRAINS: Peripheral IV SKIN: No jaundice, rashes, or lesions. A couple ecchymoses on upper extremities. No wounds seen anteriorly. Skin temperature appropriate. Not diaphoretic. HEAD: Atraumatic. Normocephalic. EYES: Pupils equal and round and reactive. Extraocular motions intact. No scleral icterus. No injection or drainage. Fundi not examined. ENT: Hearing grossly normal. Nose without bleeding or purulent drainage. Throat without visible erythema, exudates, masses, or lesions. NECK: Trachea midline. Supple, nontender. No palpable thyroid enlargement or nodularity. CARDIOVASCULAR: Regular rate and rhythm without murmurs, gallops, or rubs. No JVD. Peripheral pulses symmetric. RESPIRATORY/CHEST: Symmetric, unlabored respirations. Clear to auscultation. Breath sounds equal bilaterally. No wheezes, rales, or rhonchi. GASTROINTESTINAL: Abdomen soft, non-tender, nondistended. No hepato-splenomegaly , or palpable masses. No guarding. Bowel sounds present. GENITOURINARY: Without palpable bladder distension. MUSCULOSKELETAL: Extremities without clubbing, cyanosis, or edema. No joint tenderness or effusion noted. No calf tenderness. No mottling or clubbing. LYMPHATICS: No palpable cervical or supraclavicular adenopathy. NEUROLOGICAL: Awake and alert. Motor and sensory grossly within normal limits, but she is globally weak. Follows commands. Cognitively sharp. Moves all extremities. PSYCHIATRIC: No obvious anxiety/depression. no apparent hallucinations or other psychotic thought process. . Diagnostic Tests Laboratory Laboratory Tests Test 04/25/17 14:40 04/26/17 03:52 04/26/17 11:18 White Blood Count 2.1 TH/MM3 (4.0-11.0) 2.2 TH/MM3 (4.0-11.0) Red Blood Count 2.47 MIL/MM3 (4.00-5.30) 2.71 MIL/MM3 (4.00-5.30) Hemoglobin 7.0 GM/DL (11.6-15.3) 7.8 GM/DL (11.6-15.3) Hematocrit 20.4 % (35.0-46.0) 22.2 % (35.0-46.0) Mean Corpuscular Volume 82.5 FL (80.0-100.0) 82.1 FL (80.0-100.0) Mean Corpuscular Hemoglobin 28.3 PG (27.0-34.0) 28.9 PG (27.0-34.0) Mean Corpuscular Hemoglobin Concent 34.3 % (32.0-36.0) 35.2 % (32.0-36.0) Red Cell Distribution Width 14.5 % (11.6-17.2) 14.3 % (11.6-17.2) Platelet Count 4 TH/MM3 (150-450) 3 TH/MM3 (150-450) Mean Platelet Volume 9.4 FL (7.0-11.0) 9.5 FL (7.0-11.0) Neutrophils (%) (Auto) 58.5 % (16.0-70.0) 61.5 % (16.0-70.0) Lymphocytes (%) (Auto) 30.0 % (9.0-44.0) 26.4 % (9.0-44.0) Monocytes (%) (Auto) 9.7 % (0.0-8.0) 10.0 % (0.0-8.0) Eosinophils (%) (Auto) 1.4 % (0.0-4.0) 1.2 % (0.0-4.0) Basophils (%) (Auto) 0.4 % (0.0-2.0) 0.9 % (0.0-2.0) Neutrophils # (Auto) 1.2 TH/MM3 (1.8-7.7) 1.4 TH/MM3 (1.8-7.7) Lymphocytes # (Auto) 0.6 TH/MM3 (1.0-4.8) 0.6 TH/MM3 (1.0-4.8) Monocytes # (Auto) 0.2 TH/MM3 (0-0.9) 0.2 TH/MM3 (0-0.9) Eosinophils # (Auto) 0.0 TH/MM3 (0-0.4) 0.0 TH/MM3 (0-0.4) Basophils # (Auto) 0.0 TH/MM3 (0-0.2) 0.0 TH/MM3 (0-0.2) CBC Comment AUTO DIFF AUTO DIFF Differential Comment AUTO DIFF CONFIRMED AUTO DIFF CONFIRMED Platelet Estimate LOW (NORMAL) RARE (NORMAL) Platelet Morphology Comment NORMAL (NORMAL) NORMAL (NORMAL) Blood Urea Nitrogen 23 MG/DL (7-18) 24 MG/DL (7-18) Creatinine 1.09 MG/DL (0.50-1.00) 0.99 MG/DL (0.50-1.00) Random Glucose 100 MG/DL (74-106) 91 MG/DL (74-106) Calcium Level 8.5 MG/DL (8.5-10.1) 8.2 MG/DL (8.5-10.1) Sodium Level 138 MEQ/L (136-145) 139 MEQ/L (136-145) Potassium Level 3.8 MEQ/L (3.5-5.1) 3.8 MEQ/L (3.5-5.1) Chloride Level 105 MEQ/L (98-107) 106 MEQ/L (98-107) Carbon Dioxide Level 27.0 MEQ/L (21.0-32.0) 26.7 MEQ/L (21.0-32.0) Anion Gap 6 MEQ/L (5-15) 6 MEQ/L (5-15) Estimat Glomerular Filtration Rate 49 ML/MIN (>89) 54 ML/MIN (>89) Red Cell Morphology Comment NORMAL (NORMAL) Result Diagram: 04/26/17 0352 04/26/17 0352 Microbiology Microbiology Date/Time Source Procedure Growth Status 04/26/17 11:41 Blood Peripheral Aerobic Blood Culture Pending Received 04/26/17 11:41 Blood Peripheral Anaerobic Blood Culture Pending Received 04/26/17 11:18 Blood Peripheral Aerobic Blood Culture Pending Received 04/26/17 11:18 Blood Peripheral Anaerobic Blood Culture Pending Received Patient/Family Conference Present at Family Conference: Patient's sister via telephone . Family Conference Time (mins): 33 Family Conference Location: Telephone Issues Discussed: * Palliative care role, purpose, approach * Hospice care role, purpose, approach * Additional medical, psychosocial, and spiritual history * Patients general health, functional status, and cognitive changes in the months leading up to the current hospitalization * Patient/family understanding of the current medical problems * Patient/family understanding of prognosis * Patients goals of care as best understood from advance directives and/or conversations and/or values * Current medical treatment options and benefits/burdens of those options * Likely scenarios comparing ongoing aggressive care with a transition to comfort measures only * Questions answered to the best of my ability * Palliative care contact information provided . Assessment and Plan Disease Oriented Problem List: (1) high risk MDS versus evolving AML (2) profound and refractory thrombocytopenia (3) hypertension (4) osteoporosis (5) arthritis, history of rheumatoid arthritis Symptom Scale: (1) weakness 0-10 Scale: 6 (but still able to ambulate) (2) fatigue 0-10 Scale: 7 ("no energy") Pertinent Non-Medical Issues Psychosocial: , no children, sister has moved in with her to help. Spiritual: [employer], not yet desiring a manager engagement visit. Legal: The patient has capacity for decision-making at this time. She has designated her sister Merly as healthcare surrogate. Ethical issues impacting care: None . Important Contacts Sister: Merly Navarro (her healthcare surrogate, and a nurse) [phone] . Prognosis This patient is terminal, likely with just days or weeks to live. She is appropriate for hospice services. . Code Status: No Code Plan * DO NOT RESUSCITATE * DECISION-MAKING: The patient has capacity for decision-making at this time. She has designated her sister Merly as healthcare surrogate. * GOALS: The patient confirms DNR status. The patient and her sister are willing to meet with a hospice chemical sales representative again; I have recommended that the patient engage hospice services, as her goals are comfort oriented. * SYMPTOMS: Her weakness and fatigue are worsening but she is still functioning independently. She denies pain or dyspnea at this time. No new medication recommendations at this time. * Palliative Care will continue to follow the patient during this hospitalization. . Time Spent Total Floor Time (mins): 76 Face to Face Time (mins): 29 >50% Counseling/Coord of Care: Yes (d/w Dr. Moore and with Elsie Ruiz PA-C) Thank you for the opportunity to participate in the care of Ms. Palmer. Attestation To help prompt me to consider important information that might be impacting today's encounter and assessment, information from prior notes written by myself or my colleagues may have been "brought forward" into today's note. My signature on this note, however, is an attestation that I personally performed the exam, history, and/or decision-making noted today, and, unless otherwise indicated, the interactions with patient, family, and staff as well as the review of records all occurred today. I also attest that the listed assessment and stated plan reflect my best clinical judgment today based on the combination of historical information, prior notes, and today's exam/ interactions. When time spent is documented, it refers only to time spent today by the signer, or if indicated, combined time spent today by collaborating physician/nurse practitioner. Lidia Morales MD Apr 26, 2017 14:20
[2017-04-27 00:17] VITALS: PULSE 79
[2017-04-27 04:16] VITALS: PULSE 79
[2017-04-27 06:32] LABS: AUTOMATED NEUTROPHIL # 1.5 TH/MM3 (1.8-7.7); BASOPHIL % 0.5 % (0.0-2.0); EOSINOPHIL % 1.3 % (0.0-4.0); HEMATOCRIT 26.1 % (35.0-46.0); HEMOGLOBIN 9.1 GM/DL (11.6-15.3); LYMPH % 22.2 % (9.0-44.0); LYMPHOCYTE # 0.5 TH/MM3 (1.0-4.8); MEAN CELL VOLUME 82.7 FL (80.0-100.0); MEAN CORPUSCULAR HEMOGLOBIN 28.8 PG (27.0-34.0); MEAN CORPUSCULAR HGB CONC 34.8 % (32.0-36.0); MEAN PLATELET VOLUME 9.1 FL (7.0-11.0); MONO % 10.9 % (0.0-8.0); MONOCYTE # 0.3 TH/MM3 (0-0.9); NEUT % 65.1 % (16.0-70.0); RED BLOOD COUNT 3.15 MIL/MM3 (4.00-5.30); RED CELL DISTRIBUTION WIDTH 14.6 % (11.6-17.2); WHITE BLOOD COUNT 2.3 TH/MM3 (4.0-11.0)
[2017-04-27 06:45] LABS: PLATELET COUNT 5 TH/MM3 (150-450)
[2017-04-27 08:25] LABS: BILIRUBIN, URINE NEG (NEG); BLOOD, URINE SMALL (NEG); GLUCOSE,URINE NEG (NEG); KETONE, URINE NEG (NEG); MUCUS URINE FEW /lpf (OCC); NITRITE,URINE NEG (NEG); PH, URINE 6.5 (5.0-8.5); RENAL EPITHELIAL CELLS <1 /hpf; SQUAMOUS EPITHELIAL CELL URINE 1 /hpf (0-5); URINE COLOR YELLOW (YELLW/STRAW); URINE LEUKOCYTE ESTERASE NEG (NEG)
--- NOTE | 2017-04-27 08:29 | PD.ONC.PN ---
Subjective Subjective Remarks Pt seen and examined, labs, vitals and meds reviewed. Palliative care attending consult also reviewed. Ms. Palmer denies acute complaints. The family will be meeting with the hospice intake nurses later this AM and will at that time transition to hospice. Objective Data Date Time Temp Pulse Resp B/P (MAP) Pulse Ox O2 Delivery O2 Flow Rate FiO2 04/27/17 04:16 79 04/27/17 00:17 79 04/26/17 21:13 100.5 88 20 135/58 (83) 96 04/26/17 21:00 88 04/26/17 15:07 98.2 74 18 119/54 98 04/26/17 14:32 98.2 76 18 105/50 98 04/26/17 14:02 98.2 76 18 96/47 98 04/26/17 12:04 98.0 78 14 108/62 98 04/26/17 11:47 99.6 77 16 120/78 98 04/27/17 04/27/17 04/27/17 07:00 15:00 23:00 Intake Total 350 ml Balance 350 ml Result Diagram: 04/27/17 0609 04/26/17 0352 Laboratory Results Laboratory Tests Test 04/26/17 11:18 04/27/17 06:09 04/27/17 07:50 White Blood Count 2.3 TH/MM3 Red Blood Count 3.15 MIL/MM3 Hemoglobin 9.1 GM/DL Hematocrit 26.1 % Mean Corpuscular Volume 82.7 FL Mean Corpuscular Hemoglobin 28.8 PG Mean Corpuscular Hemoglobin Concent 34.8 % Red Cell Distribution Width 14.6 % Platelet Count 5 TH/MM3 Mean Platelet Volume 9.1 FL Neutrophils (%) (Auto) 65.1 % Lymphocytes (%) (Auto) 22.2 % Monocytes (%) (Auto) 10.9 % Eosinophils (%) (Auto) 1.3 % Basophils (%) (Auto) 0.5 % Neutrophils # (Auto) 1.5 TH/MM3 Lymphocytes # (Auto) 0.5 TH/MM3 Monocytes # (Auto) 0.3 TH/MM3 Eosinophils # (Auto) 0.0 TH/MM3 Basophils # (Auto) 0.0 TH/MM3 CBC Comment AUTO DIFF Differential Comment AUTO DIFF CONFIRMED Platelet Estimate RARE Platelet Morphology Comment NORMAL Red Cell Morphology Comment NORMAL Urine Color YELLOW Urine Turbidity CLEAR Urine pH 6.5 Urine Specific [place] 1.015 Urine Protein 30 mg/dL Urine Glucose (UA) NEG mg/dL Urine Ketones NEG mg/dL Urine Occult Blood SMALL Urine Nitrite NEG Urine Bilirubin NEG Urine Urobilinogen LESS THAN 2.0 MG/DL Urine Leukocyte Esterase NEG Urine RBC 17 /hpf Urine WBC 1 /hpf Urine Squamous Epithelial Cells 1 /hpf Urine Renal Epithelial Cells <1 /hpf Urine Mucus FEW /lpf Microscopic Urinalysis Comment CULT NOT INDICATED Culture Results Microbiology Date/Time Source Procedure Growth Status 04/26/17 11:41 Blood Peripheral Aerobic Blood Culture Pending Received 04/26/17 11:41 Blood Peripheral Anaerobic Blood Culture Pending Received 04/26/17 11:18 Blood Peripheral Aerobic Blood Culture Pending Received 04/26/17 11:18 Blood Peripheral Anaerobic Blood Culture Pending Received Administered Medications Medications (Trade) Dose Ordered Sig/Edwina Route PRN Reason Start Time Stop Time Status Last Admin Dose Admin Sodium Chloride (NS Flush) 2 ml BID IV FLUSH 04/25/17 21:00 04/26/17 21:19 Amlodipine Besylate (Norvasc) 5 mg DAILY PO 04/26/17 09:00 04/26/17 08:56 Cholecalciferol (Vitamin D3) 1,000 units DAILY PO 04/26/17 09:00 04/26/17 08:56 Metoprolol Tartrate (Lopressor) 50 mg BID PO 04/25/17 21:00 04/26/17 08:56 Cefepime HCl 2000 mg/Sodium Chloride 100 ml @ 200 mls/hr Q12H IV 04/26/17 08:00 04/26/17 21:18 Vancomycin HCl 1000 mg/Sodium Chloride 250 ml @ 250 mls/hr Q12H IV 04/26/17 09:00 04/26/17 23:11 Acetaminophen (Tylenol) 650 mg Q4H PRN PO SEE LABEL COMMENTS 04/26/17 08:30 04/26/17 11:23 Diphenhydramine HCl (Benadryl) 25 mg Q4H PRN PO SEE LABEL COMMENTS 04/26/17 08:30 04/26/17 11:22 Objective Remarks GENERAL PHYSICAL APPEARANCE: Ms. Palmer is an elderly and frail-appearing female, she is of very petite build, she is laying in bed and is awake and alert. Her sister is at bedside. HEENT: Head is atraumatic, normocephalic, conjunctivae are pale, sclerae are anicteric, EOMI, PERRLA. ORAL EXAM: No pharyngeal erythema. NECK: No palpable cervical, supraclavicular lymphadenopathy. RESPIRATORY: Good air movement bilaterally without added breath sounds. CARDIOVASCULAR: Regular rate and rhythm, S1-S2. No obvious murmurs, rubs or gallops. ABDOMEN: Thin belly, soft, nontender, no palpable organ enlargement specifically splenomegaly. LOWER EXTREMITIES: No pretibial edema. No calf tenderness. MUSCULOSKELETAL: Generalized muscle atrophy. ELECTRIC SPOT WELDER: Moving all four limbs spontaneously, no focal sensory motor deficits. Assessment/Plan Assessment Ms. 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 This is based on bone marrow biopsy findings from early January of 2017. The patient has been under my care since her initial diagnosis two and a half months ago and has been undergoing supportive red cell transfusions and platelet transfusions in the outpatient setting over this period of time. Unfortunately, she is now refractory to random donor platelet transfusions, likely due to development of alloantibodies. Her platelet count at the time of presentation was 4000, after 1 unit pooled platelets her platelet count has in fact decreased down to 3000. She was advised admission to the hospital for additional transfusions and supportive care. She has also had a fever of 101.3 degrees Fahrenheit since admission. Plan 1. High risk MDS/Evolving AML: Recommend hospice level of care. 2. Critical thrombocytopenia: Transfuse 1 unit HLA matched PLTs if they are available by the time of planned d/c home. PLan discussed with Palliative care and the the patient's sister Merly at bedside. Vinod Moore MD Apr 27, 2017 08:28
[2017-04-27 09:14] VITALS: BP 148/71; PULSE 91; RESP 16; TEMP 99; O2SAT 99
[2017-04-27] MEDS: amLODIPine BESYLATE 5 MG TAB PO SCH (09:23)
[2017-04-27] MEDS: RALOXIFENE HCL 60 MG TAB PO SCH (09:23)
[2017-04-27] MEDS: CHOLECALCIFEROL (VIT D3) 1000 UNIT TAB PO SCH (09:23)
[2017-04-27] MEDS: METOPROLOL TARTRATE 50 MG TAB PO SCH (09:23)
[2017-04-27] MEDS: CEFEPIME INJ 2,000 MG in SODIUM CHLORIDE 0.9% INJ 100 ML IV SCH (09:26)
[2017-04-27] MEDS: SODIUM CHLORIDE 0.9% FLUSH 10 ML FLUSH IV FLUSH SCH (09:26)
[2017-04-27] MEDS: VANCOMYCIN INJ 1,000 MG in SODIUM CHLOR 0.9% 250 ML INJ 250 ML IV SCH (10:10)
[2017-04-27 12:28] VITALS: BP 143/72; PULSE 77; RESP 16; TEMP 99.8; O2SAT 99
[2017-04-27] MEDS ORDERED: PRED10PA PO (12:52)
--- NOTE | 2017-04-27 12:56 | HHI.PR ---
Subjective Remarks Patient by hospice sales representative business courses who states that the patient is agreeable to this. No acute events noted overnight. Patient herself seems to be feeling okay. Objective Vital Signs Date Time Temp Pulse Resp B/P (MAP) Pulse Ox O2 Delivery O2 Flow Rate FiO2 04/27/17 12:28 99.8 77 16 143/72 (95) 99 04/27/17 09:14 99.0 91 16 148/71 (96) 99 04/27/17 04:16 79 04/27/17 00:17 79 04/26/17 21:13 100.5 88 20 135/58 (83) 96 04/26/17 21:00 88 04/26/17 15:07 98.2 74 18 119/54 98 04/26/17 14:32 98.2 76 18 105/50 98 04/26/17 14:02 98.2 76 18 96/47 98 I/O 04/26/17 04/26/17 04/26/17 04/27/17 04/27/17 04/27/17 07:00 15:00 23:00 07:00 15:00 23:00 Intake Total 231 ml 480 ml 350 ml 352 ml Balance 231 ml 480 ml 350 ml 352 ml Intake Oral 480 ml IV Total 15 ml 350 ml 352 ml Platelets 216 ml # Voids 1 1 Result Diagram: 04/27/17 0609 04/26/17 0352 Objective Remarks Patient walking around the room, in no acute distress, stable gait Unlabored breathing but has some moderate expiratory wheezing heard over bilateral lung hernandez A/P Assessment and Plan Assessment and plan 77-year-old female admitted secondary to pancytopenia with severe thrombocytopenia and anemia. Wheezing - Possible acute bronchitis; giving one-time dose of IV Solu-Medrol 125 mg and scheduled duonebs until discharge. We'll discharge the patient today with a tapering steroid pack. High-grade myeloid neoplasm High-grade MDS versus AML - Patient opting to go with hospice. We'll discharge today. Fabian Holloway MD Apr 27, 2017 12:56
[2017-04-27] MEDS ORDERED: methylPREDNISolone SOD SUCC 125 MG/2 ML VIAL IV PUSH ONE (13:00)
[2017-04-27] MEDS ORDERED: RESP: ALBUTEROL 2.5 MG/IPRATROPIUM 0.5 MG NEB (SCH) NEB (16:00)
== END 2017-04-27 16:22 | disposition hospice, inpatient (51) | DRG 809 ==
LOC: NEPC 14:08 → NEDA 17:07 → NEPGCP 18:47 → HCIN 04-26 09:13 → OBSVTOIN 04-26 09:52
PROVIDERS: ADMIT Hospitalist; ATTEND Hospitalist
PROC: 30233R1 Transfusion of Nonautologous Platelets into Peripheral Vein, Percutaneous Approach (ICD-10-PCS; principal; 2017-04-25)
PROC: 30233N1 Transfusion of Nonautologous Red Blood Cells into Peripheral Vein, Percutaneous Approach (ICD-10-PCS; 2017-04-25)
DX: D61.818 Other pancytopenia (principal); C92.00 Acute myeloblastic leukemia, not having achieved remission; R64 Cachexia; M06.9 Rheumatoid arthritis, unspecified; J20.9 Acute bronchitis, unspecified; Z51.5 Encounter for palliative care; I10 Essential (primary) hypertension; M81.0 Age-related osteoporosis without current pathological fracture; M19.90 Unspecified osteoarthritis, unspecified site; Z66 Do not resuscitate; Z88.0 Allergy status to penicillin
CPT/HCPCS: 36430; 80048; 81001; 85025; 86850; 86900; 86901; 86920; 87040; 94664; 96360; 96361; G0378; G8987-GP; G8988-GP; J0692; J3370; J7050; P9016; P9035; Q0163